=== PATIENT | female | born 1955 | race Caucasian/White ===

== ENCOUNTER 2019-09-09 07:47 | Outpatient (CLI) | payer OTHER, SELFPAY ==
--- NOTE | 2019-09-09 08:32 | ECG_ITS ---
Measurements Intervals [place] Rate: 78 P: 4 [place]: 148 QRS: 20 QRSD: 89 T: 25 QT: 348 QTc: 398 Interpretive Statements SINUS RHYTHM CONSIDER INFERIOR INFARCT, AGE INDETERMINATE BASELINE ARTIFACT- V6 ABNORMAL ECG Electronically Signed On 09-09-2019 9:15:45 CDT by Daniel Sharpe D.O.
[2019-09-09 09:16] LABS: Blood Urea Nitrogen 8 mg/dL (7-17); Calcium 9.4 mg/dL (8.4-10.2); Carbon Dioxide 30 mmol/L (22-30); Chloride 102 mmol/L (98-107); Estimated Glomerular Filt Rate > 60; Glucose 166 mg/dL (65-105); Potassium 4.5 mmol/L (3.4-5.0); Sodium 137 mmol/L (137-145)
== END 2019-09-09 07:48 | disposition home or self-care (01) ==
PROVIDERS: Anesthesiology; Visit Provider Surgery
DX: E11.9 Type 2 diabetes mellitus without complications (principal); R94.31 Abnormal electrocardiogram [ECG] [EKG]
CPT/HCPCS: 36415; 80048; 93005

== ENCOUNTER 2019-09-14 00:04 | Outpatient (CLI) | payer OTHER, SELFPAY ==
[2019-09-14 18:56] LABS: SARS-CoV-2 RNA PCR Negative
== END 2019-09-14 00:05 | disposition home or self-care (01) ==
LOC: ANHCOVIDDT 00:05
PROVIDERS: Visit Provider Surgery
DX: Z01.818 Encounter for other preprocedural examination (principal); Z11.59 Encounter for screening for other viral diseases
CPT/HCPCS: 87635; C9803; U0003

== ENCOUNTER 2019-09-16 15:04 | Observation (INO) | payer OTHER, SELFPAY ==
[2019-09-09 08:17] VITALS: BP 152/80; PULSE 82; RESP 20; TEMP 37; O2SAT 99
[2019-09-09 08:32] VITALS: BMI 25.7
[2019-09-09 08:41] VITALS: BMI 25.7
--- NOTE | 2019-09-13 16:59 | PM.IMHP ---
H&P: HPI History of Present Illness Chief complaint: Excisional Hernia Narrative: Katerina Lee is a 63 year old female Who had a hysterectomy quite a few years ago. For about the last 7 years or more she has noticed a bulge in the lower abdomen. The bulges in the suprapubic area and just left of the suprapubic area. She was evaluated in 2018 and surgery was recommended. The hernia was small and was not giving her very much trouble. She decided to hold off on the surgery. CT scan at that time showed a large infraumbilical ventral incisional hernia. Over the last 2 years the hernia has increased in size. It is more frequently painful. She can still reduce the hernia. She was seen in the office and after discussion, she wishes to proceed with hernia repair. She is diabetic and blood sugars typically run in the upper 100s. Her last A1c was 6.1. Review of Systems Review of Systems: All systems reviewed & are unremarkable except as noted in HPI and below Constitutional: Constitutional: Denies headache(s) ENT: Denies headache(s) Cardiovascular: Cardiovascular: Denies chest pain and Denies dyspnea Respiratory: Respiratory: Denies cough and Denies dyspnea Gastrointestinal: Gastrointestinal: Denies bloating, Denies constipation, Reports heartburn and Denies nausea Musculoskeletal: Musculoskeletal: Reports back pain Neurologic: Denies confusion, Denies headache(s) and Reports numbness ( Extremities) Psychiatric: Psychiatric: Denies confusion PMFSH Past Medical History Medical History Carpal tunnel syndrome Diabetes Hyperlipidemia Neuropathy Surgical History Surgical History History of hysterectomy total History of placement of ear tubes History of tonsillectomy Family History Family History Father Heart disease Mother Heart disease Diabetes mellitus Grandparent Heart disease Cerebrovascular accident Sibling Heart disease Diabetes mellitus Other Hypertension Social History Social History Smoking status: Former smoker Smoking end date: 03/24/75 Alcohol intake: current Additional occupation/education comments: [employer] Home Medications and Allergies Home Medications Medication Instructions Recorded Confirmed Type alendronate 70 mg tablet 70 mg PO WEEKLY 07/06/19 09/09/19 History atorvastatin 20 mg tablet 20 mg PO HS 07/06/19 09/09/19 History cholecalciferol (vitamin D3) 50 50 mcg PO DAILY 07/06/19 09/09/19 History mcg (2,000 unit) capsule biotin 10,000 mcg PO DAILY 09/09/19 09/09/19 History chromium picolinate 1,000 mcg PO DAILY 09/09/19 09/09/19 History cyanocobalamin (vitamin B-12) 1,000 mcg PO DAILY 09/09/19 09/09/19 History liraglutide [Victoza 2-Neymar] 1.8 mg SUBCUT DAILY 09/09/19 09/09/19 History irdcrhgxnvqb-bxfp-mflck acid 1 tablet PO DAILY 09/09/19 09/09/19 History [Complete Women] Allergies Allergy/AdvReac Type Severity Reaction Status Date / Time banana Allergy Mild Itching Verified 09/09/19 08:09 kiwi Allergy Mild Itching Verified 09/09/19 08:09 Exam Const: General: cooperative, comfortable, no acute distress, alert and awake; No confusion Orientation/consciousness: No confusion HENMT: Head: normocephalic, atraumatic, no contusions and no scalp lesions Ears: external ears normal General nose exam: Normal external nose present Face and sinus: face symmetric and dry mucous membranes Mouth: Yes Normal oral and palatal mucosa present and Yes tongue normal Throat: posterior oropharynx normal Eyes: Conjunctivae: conjunctivae normal Sclera: sclerae normal Pupils: Equal, round and reactive pupils present EOM: EOMs intact bilaterally Neck: Neck: normal visual inspection, no lymphadenopathy, trachea midline, supple, nontender and no J
[2019-09-16] VITALS (14 sets, daily range): BP systolic 117–163; BP diastolic 63–90; PULSE 84–98; RESP 10–20; TEMP 36.3–36.7; O2SAT 98–100; BMI 25.9
--- NOTE | 2019-09-16 09:33 | WPDANESEPPF ---
Anes - Initial Pre Proc Eval Procedure: Operation Date: 09/16/19 10:30 Proposed Procedures p Repair Incisional Hernia With Mesh, Possible Bilateral Myofascial Flap Advancement - Jose Rodriguez MD Date/Time: 09/16/19 09:33 Surgeon: Jose Rodriguez MD Pre Op Diagnosis: Excisional Hernia Patient Data Age: 63 Gender: F Height: 1.49 m Weight: 56.4 kg Last Vital Signs Temp 36.3 C L 09/16/19 08:44 Pulse 86 09/16/19 08:44 Resp 20 09/16/19 08:44 BP 133/85 09/16/19 08:44 Pulse Ox 100 09/16/19 08:44 Allergies Allergy/AdvReac Type Severity Reaction Status Date / Time banana Allergy Mild Itching Verified 09/16/19 08:49 kiwi Allergy Mild Itching Verified 09/16/19 08:49 Home Medications Medication Instructions Recorded Confirmed Type alendronate 70 mg tablet 70 mg PO WEEKLY 07/06/19 09/16/19 History atorvastatin 20 mg tablet 20 mg PO HS 07/06/19 09/16/19 History cholecalciferol (vitamin D3) 50 50 mcg PO DAILY 07/06/19 09/16/19 History mcg (2,000 unit) capsule biotin 10,000 mcg PO DAILY 09/09/19 09/16/19 History chromium picolinate 1,000 mcg PO DAILY 09/09/19 09/16/19 History cyanocobalamin (vitamin B-12) 1,000 mcg PO DAILY 09/09/19 09/16/19 History liraglutide [Victoza 2-Neymar] 1.8 mg SUBCUT DAILY 09/09/19 09/16/19 History ivvyiwbfbtqc-pmjs-iyhei acid 1 tablet PO DAILY 09/09/19 09/16/19 History [Complete Women] Patient hx anesthesia problems: none Family hx anesthesia problems: none PMFSH Past Medical History Medical History Carpal tunnel syndrome Diabetes Hyperlipidemia Neuropathy Surgical History Surgical History History of hysterectomy total History of placement of ear tubes History of tonsillectomy Family History Family History Father Heart disease Mother Heart disease Diabetes mellitus Grandparent Heart disease Cerebrovascular accident Sibling Heart disease Diabetes mellitus Other Hypertension Social History Social History Smoking status: Former smoker Smoking end date: 03/24/75 Alcohol intake: current Additional occupation/education comments: [employer] Final PreProcedure Day of Procedure 09/16/19 09:33 Patient weight: overweight Heart: regular rate and rhythm Lungs: clear to auscultation and normal air movement Airway: Mallampati scale class II Neurological: alert and oriented Last oral intake: >/= 8 hours ASA classification: III Emergent: no Anesthetic plan: proceed Anesthesia type and monitoring: general ETT and standard monitoring Informed Consent: The patient's anesthetic plan and its attendant risks and benefits were discussed with the patient/family/POA. Questions were solicited and answers provided to the satisfaction of the patient/family/POA.
[2019-09-16] MEDS: LACTATED RINGERS 1,000 ML 30 ML IV CONT ×2 (09:40→13:24)
[2019-09-16 09:42] LABS: Glucose Point of Care 146 (65-105)
--- NOTE | 2019-09-16 09:58 | WPDHPUPDATE1 ---
History and Physical Update Update Date/Time: 09/16/19 09:58 History and Physical has been reviewed, including an updated exam of the patient. There are NO changes in the patient's condition. Risks, benefits, and alternatives have been discussed and questions answered. Patient agrees to proceed with procedure.
[2019-09-16] MEDS: ceFAZolin 2 GM/D5W 50 ML 2 GM/50 ML BAG IVPB (10:34)
[2019-09-16 12:45] LABS: Glucose Point of Care 135 (65-105)
[2019-09-16] MEDS: KETOROLAC 30 MG/ML VIAL (*BKC) 15 MG IV PUSH (13:04)
[2019-09-16 13:30] LABS: Glucose Point of Care 161 (65-105)
[2019-09-16] MEDS: ONDANSETRON INJ 4 MG/2 ML VIAL IV PUSH (13:49)
--- NOTE | 2019-09-16 13:49 | PM.PROC ---
Procedure Note - Detailed Date of procedure: 09/16/19 Pre-op diagnosis: Incisional Hernia Incisional hernia Post-op diagnosis: same Procedure performed: Repair incisional hernia with mesh, bilateral transversus abdominis myofascial flap advancement, 5 cm on the left, 2 cm on the right. Description of procedure: Patient was checked in the preoperative holding area. She was then taken to surgery and induced into general anesthesia. The abdomen was prepped and draped. The hernia was easily palpable in the left lower quadrant. A midline lower abdominal incision was made. This started below the umbilicus but extended to the pubis. Dissection was carried through the subcutaneous and down to the hernia sac. The hernia sac was dissected free from the surrounding subcutaneous. It was dissected on both the left and right sides down to the fascial edge. Then the neck of the hernia was incised and eventually the hernia sac was completely removed. The hernia sac was sent to pathology as a specimen. Omentum had been chronically incarcerated in the hernia sac. This was reduced into the abdomen. Initially, I thought that this was a fairly small defect that could possibly just be repaired with underlay mesh. Unfortunately the sigmoid colon was plastered to the peritoneum on the left side. This had to be taken down for repair. I tried to do this through the existing hernia but there was not enough space to proceed safely. I went ahead and opened the midline fascia the length of the wound. From there I was able to dissect the sigmoid colon off of the peritoneum leaving what ever peritoneum there that had not been removed with the hernia. With the sigmoid safely in the abdomen in its normal position, I then took down lateral adhesions on the patient's left side all the way to the axillary line. The bulk of the defect was on the patient's left side. I then exposed the peritoneal edge and began dissecting the peritoneum from the rectus muscle in the lower abdomen. I dissected on laterally doing a transversus abdominis release so that the dissection went all the way to the axillary line. In the upper part of the incision, I had to divide some of the posterior rectus fascia. I then dissected to the lateral aspect of the posterior rectus fascia. I scored this just medial to the lateral edge. I avoided the neurovascular bundle to the rectus muscles. I then began the transversus abdominis release in this area. This had to be done carefully as the transversus was very thin. Once I gained access to the appropriate plane deep to the transversus muscle, I was able to continue this dissection was far laterally as I had done in the lower part of the dissection. There were a couple of holes in the peritoneum which I closed with 3 0 Vicryl suture. I then changed sides and started work on the patient's right side. The peritoneum was dissected off the posterior aspect of the rectus abdominis muscle. I dissected this down to the suprapubic area and then connected the dissection from the patient's right side to the previous dissection done on the left side so that there was a retropubic plane. I then continued this dissection cephalad and gained access to the space deep to the transversus abdominis. I carefully dissected this as it was quite thin. As I a went more cephalad I did have to divide the posterior rectus fascia for a few inches as I had on the patient's left side. I developed a plane across the midline above the level of the umbilicus that would connect the retro rectus dissections from the right and the left side across the midline. The transversus abdominis release in this lower part of the abdomen was completed on the patient's right side extending the dissection far laterally. On the right side there were also a couple of holes in the peritoneum that I repaired with 3 0 Vicryl suture. I inspected both sides of the dissection. We had a substantial transversus abdominis release
--- NOTE | 2019-09-16 15:44 | ADMGEN ---
This patient, Katerina Lee, was admitted to [facility] Surg Room 313-01. Patient/family oriented to hospital policies and general routines including ID bracelet, bed and alarms, visiting hours, pain management, procedures, bathroom and other care routines, personal items, smoking policy, room service/diet, and visiting hours. Valuables list has been completed. Information on how to activate the Rapid Response Team has been discussed. Patient/Family are encouraged to report perceived risks to care and to ask questions if they do not understand what they are told or what they should do.
[2019-09-16] MEDS: LACTATED RINGERS 1,000 ML 100 ML IV CONT (16:37)
[2019-09-16] MEDS: IBUPROFEN IV 800 MG/200 ML 800 MG/200 ML BAG 400 MG IVPB (18:06)
[2019-09-16 18:12] LABS: Glucose Point of Care 188 (65-105)
[2019-09-16] MEDS: ATORVASTATIN 20 MG TABLET PO (21:09)
[2019-09-16] MEDS: SENNA/DOCUSATE SODIUM TABLET 2 TAB PO (21:09)
[2019-09-16] MEDS: ENOXAPARIN 30 MG/0.3 ML SYRINGE SUB-Q (21:09)
[2019-09-16 21:55] LABS: Glucose Point of Care 288 (65-105)
[2019-09-17] MEDS: IBUPROFEN IV 800 MG/200 ML 800 MG/200 ML BAG 400 MG IVPB ×5 (00:35→23:49)
[2019-09-17 01:58] VITALS: BP 103/60; PULSE 91; RESP 18; TEMP 36.4; O2SAT 99
[2019-09-17] MEDS: LACTATED RINGERS 1,000 ML 100 ML IV CONT ×2 (04:17→15:49)
[2019-09-17 06:00] VITALS: BP 120/68; PULSE 78; RESP 18; TEMP 36.7; O2SAT 100
[2019-09-17 06:32] LABS: Hematocrit 31.8 % (37.0-47.0); Hemoglobin 10.8 g/dL (12.0-15.0); Mean Corpuscular Hemoglobin 32.3 pg (26-34); Mean Corpuscular Volume 95.2 fl (80-100); Mean Platelet Volume 10.9 fl (7.4-10.4); Platelet Count Result 129 k/mm3 (150-375); Red Blood Count 3.34 M/mm3 (4.2-5.4); Red Cell Distribution Width 12.7 % (11.5-14.5); White Blood Count 9.2 K/mm3 (4.5-10.0)
[2019-09-17 06:46] LABS: Blood Urea Nitrogen 11 mg/dL (7-17); Calcium 8.1 mg/dL (8.4-10.2); Carbon Dioxide 25 mmol/L (22-30); Chloride 105 mmol/L (98-107); Estimated Glomerular Filt Rate > 60; Glucose 184 mg/dL (65-105); Potassium 4.3 mmol/L (3.4-5.0); Sodium 137 mmol/L (137-145)
--- NOTE | 2019-09-17 07:10 | PM.PNGS ---
Progress Note: A&P Assessment and Plan (1) Ventral incisional hernia without obstruction or gangrene: Code(s): K43.2 - Incisional hernia without obstruction or gangrene Status: Chronic Assessment and Plan: Doing well postop day 1. Will DC Jim today and start getting patient up. Start dressing changes tomorrow. Advance to soft diet. Continue to check labs daily. Looks good. (2) Diabetes: Qualifiers: Diabetes mellitus type: type 2 Diabetes mellitus continuous churn buttermaker insulin use: without fci use Diabetes mellitus complication status: without complication Qualified Code(s): E11.9 - Type 2 diabetes mellitus without complications Code(s): E11.9 - Type 2 diabetes mellitus without complications Status: Chronic Assessment and Plan: Blood sugars mostly in the 100s. Continue to monitor with sliding scale insulin. Hospitalist seeing patient 2. Subjective Subjective Date/Time Seen: 09/17/19 07:10 Post Op day: 1 Patient reports: no new complaints, pain is less (Not having much pain.), tolerating liquids well, no flatus and no bowel movement Review of Systems Review of Systems: All systems reviewed & are unremarkable except as noted in HPI and below Constitutional: Constitutional: Denies headache(s) Cardiovascular: Cardiovascular: Denies chest pain and Denies dyspnea Respiratory: Respiratory: Denies cough and Denies dyspnea Gastrointestinal: Gastrointestinal: Reports as per HPI Neurologic: Denies confusion and Denies headache(s) Exam Const: General: comfortable and no acute distress; No confusion Orientation/consciousness: patient oriented x3 and No confusion GI: Inspection: incision (Dressing dry and intact. Subcu drain on left is bloody) GI Palp: Yes Soft to palpation, Yes Tenderness to palpation present (GI), No Guarding due to palpation present (GI) and No Rebound tenderness present Auscultation: Hypoactive bowel sounds present Neuro: General: patient oriented x3, no focal motor deficits and No confusion Extrem: General: no calf tenderness and no edema Psych: Affect: normal affect Insight: Good insight present (Psych) Judgement: Good judgement present (Psych) Objective Data Vital Signs Vital Signs: Vital Signs - 24 hr 09/16/19 08:44 09/16/19 13:24 09/16/19 13:40 Temperature 36.3 C L 36.7 C Pulse Rate 86 91 89 Respiratory Rate 20 10 L 10 L Blood Pressure 133/85 161/74 H 156/73 H Pulse Oximetry 100 100 98 09/16/19 13:55 09/16/19 14:10 09/16/19 14:25 Temperature Pulse Rate 88 86 84 Respiratory Rate 12 12 12 Blood Pressure 137/67 117/63 117/63 Pulse Oximetry 98 98 98 09/16/19 14:40 09/16/19 14:55 09/16/19 15:00 Temperature Pulse Rate 87 90 89 Respiratory Rate 12 10 L 12 Blood Pressure 117/66 121/66 122/69 Pulse Oximetry 98 99 99 09/16/19 15:15 09/16/19 15:30 09/16/19 16:00 Temperature 36.4 C L 36.4 C 36.3 C L Pulse Rate 92 92 91 Respiratory Rate 18 16 16 Blood Pressure 146/75 H 147/81 H 163/87 H Pulse Oximetry 100 100 100 09/16/19 17:00 09/16/19 22:00 09/17/19 01:58 Temperature 36.3 C L 36.7 C 36.4 C Pulse Rate 96 98 91 Respiratory Rate 18 18 18 Blood Pressure 159/90 H 139/79 103/60 Pulse Oximetry 100 100 99 09/17/19 06:00 Temperature 36.7 C Pulse Rate 78 Respiratory Rate 18 Blood Pressure 120/68 Pulse Oximetry 100 Intake/Output Intake/Output: Intake & Output 09/14/19 09/15/19 09/16/19 09/17/19 23:59 23:59 23:59 23:59 Intake Total 1410 1450 Output Total 510 1775 Balance 900 -325 Meds/Results Medications: Active Medications Generic Name Dose Route Start Last Admin Trade Name Joseq PRN Reason Stop Dose Admin Acetaminophen 500 mg 09/16/19 15:04 Tylenol Tablet PO Q6H PRN Mild Pain (1-3) or Fever Hydrocodone Bitart/Acetaminophen 1 tab 09/16/19 15:04 09/16/19 16:37 [place] 5-325 Mg PO 1 tab Q4H PRN Administration Pain Rated 4-6 Hydrocodone Bitart/Acetamin
--- NOTE | 2019-09-17 08:29 | WPDANESPN ---
Anes - Prog Note Post-Op Date/Time: 09/17/19 08:29 Cardiovascular status: normal Respiratory status: normal Airway patency: baseline Mental status: baseline Post-Op hydration status: normal Vital Signs: Last Vital Signs Temp 98.1 F 09/17/19 06:00 Pulse 78 09/17/19 06:00 Resp 18 09/17/19 06:00 BP 120/68 09/17/19 06:00 Pulse Ox 100 09/17/19 06:00 I/O: Intake & Output 09/16/19 09/17/19 09/17/19 23:59 07:59 15:59 Intake Total 760 1450 Output Total 350 1775 Balance 410 -325 Laboratory Tests 09/17/19 06:06 09/17/19 06:06 09/16/19 09/16/19 09/16/19 09:36 12:39 13:28 WBC RBC Hgb Hct MCV MCH MCHC RDW Plt Count MPV Sodium Potassium Chloride Carbon Dioxide BUN Creatinine Estim Creat Clear Calc Estimated GFR Glucose POC Capillary Glucose 146 H 135 H 161 H Calcium 09/16/19 09/16/19 09/17/19 17:35 21:17 06:06 WBC 9.2 RBC 3.34 L Hgb 10.8 L Hct 31.8 L MCV 95.2 MCH 32.3 MCHC 34.0 RDW 12.7 Plt Count 129 L MPV 10.9 H Sodium Potassium Chloride Carbon Dioxide BUN Creatinine Estim Creat Clear Calc Estimated GFR Glucose POC Capillary Glucose 188 H 288 H Calcium 09/17/19 06:06 WBC RBC Hgb Hct MCV MCH MCHC RDW Plt Count MPV Sodium 137 Potassium 4.3 Chloride 105 Carbon Dioxide 25 BUN 11 Creatinine 0.70 Estim Creat Clear Calc Not Reportable Estimated GFR > 60 Glucose 184 H POC Capillary Glucose Calcium 8.1 L Post-procedural complaints: other (pt complains of bilateral eye burning with right eye stabbing pain . eye gtts ordered. ) Patient Feedback: Patient satisfied with anesthetic care.
[2019-09-17 09:09] VITALS: PULSE 82; O2SAT 98
[2019-09-17] MEDS: polyethylene glycoL 3350 17 GM POWD.PACK PO (11:13)
[2019-09-17] MEDS: ENOXAPARIN 40 MG/0.4 ML SYRINGE SUB-Q (11:13)
[2019-09-17] MEDS: DICLOFENAC SODIUM 0.1% OPHTH SOLN 2.5 ML BOTTLE 1 DROP EACH EYE ×2 (13:50→21:43)
[2019-09-17 14:00] VITALS: BP 150/74; PULSE 93; RESP 18; TEMP 36.3; O2SAT 98
[2019-09-17 17:46] LABS: Glucose Point of Care 172 (65-105)
[2019-09-17] MEDS: ATORVASTATIN 20 MG TABLET PO (20:09)
[2019-09-17 20:44] LABS: Glucose Point of Care 275 (65-105)
[2019-09-17 22:00] VITALS: BP 117/62; PULSE 91; RESP 18; TEMP 36.6; O2SAT 97
[2019-09-18] MEDS: LACTATED RINGERS 1,000 ML 100 ML IV CONT ×2 (00:52→10:32)
[2019-09-18 06:00] VITALS: BP 120/71; PULSE 74; RESP 18; TEMP 36.5; O2SAT 95
[2019-09-18 06:40] LABS: Hematocrit 27.8 % (37.0-47.0); Hemoglobin 9.2 g/dL (12.0-15.0); Mean Corpuscular HGB Conc 33.1 g/dl (32-36); Mean Corpuscular Hemoglobin 31.3 pg (26-34); Mean Corpuscular Volume 94.6 fl (80-100); Mean Platelet Volume 11.1 fl (7.4-10.4); Platelet Count Result 108 k/mm3 (150-375); Red Blood Count 2.94 M/mm3 (4.2-5.4); Red Cell Distribution Width 12.9 % (11.5-14.5); White Blood Count 6.8 K/mm3 (4.5-10.0)
[2019-09-18 06:54] LABS: Blood Urea Nitrogen 12 mg/dL (7-17); Carbon Dioxide 27 mmol/L (22-30); Chloride 107 mmol/L (98-107); Estimated Glomerular Filt Rate > 60; Glucose 179 mg/dL (65-105); Potassium 3.8 mmol/L (3.4-5.0); Sodium 134 mmol/L (137-145)
[2019-09-18] MEDS: IBUPROFEN IV 800 MG/200 ML 800 MG/200 ML BAG 400 MG IVPB ×4 (06:58→23:36)
[2019-09-18] MEDS: DICLOFENAC SODIUM 0.1% OPHTH SOLN 2.5 ML BOTTLE 1 DROP EACH EYE ×3 (06:59→20:29)
[2019-09-18 07:48] VITALS: O2SAT 90
[2019-09-18] MEDS: ENOXAPARIN 40 MG/0.4 ML SYRINGE SUB-Q (08:54)
[2019-09-18 08:57] LABS: Glucose Point of Care 175 (65-105)
--- NOTE | 2019-09-18 10:15 | PM.PNGS ---
Progress Note: A&P Assessment and Plan (1) Ventral incisional hernia without obstruction or gangrene: Code(s): K43.2 - Incisional hernia without obstruction or gangrene Status: Chronic Assessment and Plan: doing well, cont routine postop care, will advance diet, cont OOB/IS, poss home tomorrow (2) Diabetes: Qualifiers: Diabetes mellitus type: type 2 Diabetes mellitus long term care phlebotomist insulin use: without long term care phlebotomist use Diabetes mellitus complication status: without complication Qualified Code(s): E11.9 - Type 2 diabetes mellitus without complications Code(s): E11.9 - Type 2 diabetes mellitus without complications Status: Chronic Assessment and Plan: diabetic diet Subjective Subjective Date/Time Seen: 09/18/19 10:15 Pt feels good, reports no issues Review of Systems Constitutional: Constitutional: Reports weakness Cardiovascular: Cardiovascular: Denies chest pain Respiratory: Respiratory: Denies dyspnea Gastrointestinal: Gastrointestinal: Reports abdominal pain, Denies bloating, Denies constipation, Denies diarrhea, Denies nausea and Denies vomiting Exam Const: General: no acute distress Resp: Auscultation: clear to auscultation bilaterally Cardio: Rate: regular rate Rhythm: regular rhythm GI: Other: soft, sl dist, junie TTP, incision C/D/I, LESLEE LLQ sanganeous but not large amount, RLQ s/s mod Objective Data Vital Signs Vital Signs: Vital Signs - 24 hr 09/17/19 14:00 09/17/19 22:00 09/18/19 06:00 Temperature 36.3 C L 36.6 C 36.5 C Pulse Rate 93 91 74 Respiratory Rate 18 18 18 Blood Pressure 150/74 H 117/62 120/71 Pulse Oximetry 98 97 95 09/18/19 07:48 Temperature Pulse Rate Respiratory Rate Blood Pressure Pulse Oximetry 90 Intake/Output Intake/Output: Intake & Output 09/15/19 09/16/19 09/17/19 09/18/19 23:59 23:59 23:59 23:59 Intake Total 1410 4010 1910 Output Total 510 2925 1750 Balance 900 1085 160 Meds/Results Medications: Active Medications Generic Name Dose Route Start Last Admin Trade Name Freq PRN Reason Stop Dose Admin Acetaminophen 500 mg 09/16/19 15:04 Tylenol Tablet PO Q6H PRN Mild Pain (1-3) or Fever Hydrocodone Bitart/Acetaminophen 1 tab 09/16/19 15:04 09/18/19 08:52 [place] 5-325 Mg PO 1 tab Q4H PRN Administration Pain Rated 4-6 Hydrocodone Bitart/Acetaminophen 1 tab 09/16/19 15:04 [place] 10-325 Mg PO Q6H PRN Pain Rated 7-10 Artificial Tears 1 drop 09/17/19 08:26 09/17/19 11:12 Artificial Tears EACH EYE 1 drop Q2H PRN Administration Dry Eye(s) Atorvastatin Calcium 20 mg 09/16/19 21:00 09/17/19 20:09 Lipitor PO 20 mg HS MIREYA Administration Dextrose 12.5 gm 09/16/19 15:04 Dextrose 50% Syringe IV PUSH PRN PRN Hypoglycemia Protocol Diclofenac Sodium 1 drop 09/17/19 14:00 09/18/19 06:59 Voltaren 0.1% Ophth Soln EACH EYE 09/21/19 14:01 1 drop Q8HR MIREYA Administration Diphenhydramine HCl 25 mg 09/16/19 15:04 Benadryl Inj IV PUSH Q6H PRN Itching Enoxaparin Sodium 40 mg 09/17/19 09:00 09/18/19 08:54 Lovenox SUB-Q 40 mg DAILY MIREYA Administration Glucagon 1 mg 09/16/19 15:04 Glucagon For Inj IM PRN PRN Hypoglycemia Protocol Glucose 15 gm 09/16/19 15:04 Glutose 15 PO PRN PRN Hypoglycemia Protocol Lactated Ringer's 1,000 mls @ 100 mls/hr 09/16/19 15:04 09/18/19 00:52 Lr - Lactated Ringers Iv IV CONT 100 mls/hr .Q10H MIREYA Administration Ibuprofen 800 mg in 200 mls @ 400 mls/hr 09/16/19 19:00 09/18/19 06:58 Caldolor 800 Mg/200 Ml IVPB 400 mls/hr Q6HR MIREYA Administration Dextrose 1,000 mls @ 100 mls/hr 09/16/19 15:04 Dextrose 5% 1,000 Ml IVPB PRN PRN Hypoglycemia Protocol Insulin Aspart 3 - 6 units 09/16/19 17:00 09/18/19 08:52 Novolog SUB-Q Not Given TIDWM MIREYA Protocol Morphine Sulfat
[2019-09-18 12:19] LABS: Glucose Point of Care 204 (65-105)
[2019-09-18] MEDS: INSULIN ASPART (*BKC) 100 UNITS/ML SUB-Q (12:19)
[2019-09-18 14:00] VITALS: BP 137/78; PULSE 84; RESP 18; TEMP 36.7; O2SAT 98
[2019-09-18 17:53] LABS: Glucose Point of Care 178 (65-105)
[2019-09-18] MEDS: ATORVASTATIN 20 MG TABLET PO (20:29)
[2019-09-18 21:15] LABS: Glucose Point of Care 247 (65-105)
[2019-09-18 22:00] VITALS: BP 112/65; PULSE 82; RESP 20; TEMP 36.5; O2SAT 96
[2019-09-19] MEDS: LACTATED RINGERS 1,000 ML 100 ML IV CONT (03:40)
[2019-09-19 06:00] VITALS: BP 153/73; PULSE 93; RESP 20; TEMP 36.2; O2SAT 100
[2019-09-19] MEDS: IBUPROFEN IV 800 MG/200 ML 800 MG/200 ML BAG 400 MG IVPB ×2 (06:19→12:37)
[2019-09-19] MEDS: DICLOFENAC SODIUM 0.1% OPHTH SOLN 2.5 ML BOTTLE 1 DROP EACH EYE (06:20)
[2019-09-19 06:28] LABS: Hematocrit 27.6 % (37.0-47.0); Hemoglobin 9.2 g/dL (12.0-15.0); Immature Platelet Fraction Pct 5.5 % (0.9-11.2); Mean Corpuscular HGB Conc 33.3 g/dl (32-36); Mean Corpuscular Hemoglobin 32.1 pg (26-34); Mean Corpuscular Volume 96.2 fl (80-100); Mean Platelet Volume 11.2 fl (7.4-10.4); Platelet Count Result 113 k/mm3 (150-375); Red Blood Count 2.87 M/mm3 (4.2-5.4); Red Cell Distribution Width 12.7 % (11.5-14.5); White Blood Count 5.4 K/mm3 (4.5-10.0)
[2019-09-19 06:46] LABS: Blood Urea Nitrogen 11 mg/dL (7-17); Calcium 8.2 mg/dL (8.4-10.2); Carbon Dioxide 28 mmol/L (22-30); Chloride 104 mmol/L (98-107); Estimated Glomerular Filt Rate > 60; Glucose 174 mg/dL (65-105); Potassium 4.1 mmol/L (3.4-5.0); Sodium 135 mmol/L (137-145)
[2019-09-19] MEDS: ENOXAPARIN 40 MG/0.4 ML SYRINGE SUB-Q (09:31)
[2019-09-19 12:30] LABS: Glucose Point of Care 164 (65-105)
[2019-09-19] MEDS: INSULIN ASPART (*BKC) 100 UNITS/ML SUB-Q (12:33)
[2019-09-19 12:52] LABS: Glucose Point of Care 243 (65-105)
--- NOTE | 2019-09-19 13:19 | PM.DS ---
DS: Admitting Diagnosis Admitting Diagnosis Admitting Diagnosis: ventral incisional hernia DS: Discharge Diagnosis Discharge Diagnosis (1) Ventral incisional hernia without obstruction or gangrene: Code(s): K43.2 - Incisional hernia without obstruction or gangrene Status: Chronic Assessment and Plan: s/p repair, RLQ drain removed, will leave LLQ drain, instructions for wound care and activity restrictions given, f/u Dr. Rodriguez 1 wk (2) Diabetes: Qualifiers: Diabetes mellitus type: type 2 Diabetes mellitus custodial insulin use: without custodial use Diabetes mellitus complication status: without complication Qualified Code(s): E11.9 - Type 2 diabetes mellitus without complications Code(s): E11.9 - Type 2 diabetes mellitus without complications Status: Chronic Assessment and Plan: stable, resume home meds DS: Summary Hospital Course Reason for hospitalization: Ventral incisional hernia Hospital Course: Patient presented on 09/15 for repair of large lower abdominal incisional hernia. Patient underwent repair with mesh and bilateral transversus abdominal compartment release by Dr. Rodriguez, please see full operative report for details of the procedure. Patient did very well postoperatively, and pain was well controlled with p.o. analgesia. Patient did have 2 drains left, and right lower quadrant drain was removed prior to discharge. Left lower quadrant drain will stay in place, drain care instructions given. Wound was examined and looks to be healing well, wound care instructions given. Patient tolerating a diet and having bowel function at discharge. Patient will follow-up with Dr. Rodriguez in 1 week for drain removal. Status at Discharge Functional status at discharge: independent ambulation Overall status at discharge: patient is progressing back to baseline Time Spent with Patient Time attestation: Total time spent providing and/or coordinating discharge services: Time spent: Less than 30 minutes DS: Data Data Completed and Pending Completed studies during hospitalization: Pending at discharge 09/16/19 11:17 Surgical [PTH] Routine Labs on day of discharge: Labs from last 24 hours 09/19/19 09/19/19 09/19/19 12:32 08:12 05:47 WBC RBC Hgb Hct MCV MCH MCHC RDW Plt Count MPV % Immature Plt Fraction Sodium 135 L Potassium 4.1 Chloride 104 Carbon Dioxide 28 BUN 11 Creatinine 0.60 L Estim Creat Clear Calc Not Reportable Estimated GFR > 60 Glucose 174 H POC Capillary Glucose 243 H 164 H Calcium 8.2 L 09/19/19 09/18/19 09/18/19 05:47 20:38 17:43 WBC 5.4 RBC 2.87 L Hgb 9.2 L Hct 27.6 L MCV 96.2 MCH 32.1 MCHC 33.3 RDW 12.7 Plt Count 113 L MPV 11.2 H % Immature Plt Fraction 5.5 Sodium Potassium Chloride Carbon Dioxide BUN Creatinine Estim Creat Clear Calc Estimated GFR Glucose POC Capillary Glucose 247 H 178 H Calcium Discharge Plan Discharge Attending physician on discharge: Jose Rodriguez Discharging Clinician: Clarisse Goldstein Anticipated Discharge Date/Time: 09/19/19 13:16 Patient Disposition: Home, Self-Care Activity: no shower, no straining and other - see discharge instructions Diet: as tolerated Wound Care Instructions: remove dressing to shower and change dressing daily Discharge Instructions: DISCHARGE INSTRUCTION SHEET FOR HERNIA, GALLBLADDER AND APPENDIX SURGERIES DR. GOLDSTEIN PATIENT TO TAKE HOME 1. May shower in 24 hours, no soaking in bath x 2weeks. 2. Call office for: Wound increasingly painful or bleeding Vomiting Fever of greater than 101 degrees 3. If no bowel movement for three days, take 1 oz. (30 ml) Milk of Magnesia or MiraLax 17g 1 to 2 times daily. 4. No heavy lifting > 10-15 pounds x weeks for hernia repairs and 2 weeks for laparosco
[2019-09-19 14:00] VITALS: BP 141/66; PULSE 76; RESP 18; TEMP 36.8; O2SAT 97
== END 2019-09-19 15:11 | disposition home or self-care (01) ==
LOC: ANH3MEDSUR 09-19 13:19
PROVIDERS: Admitting Provider Surgery; Visit Provider Surgery
PROC: 0WQF0ZZ Repair Abdominal Wall, Open Approach (ICD-10-PCS; CPT 49560; principal; 2019-09-16 10:30)
DX: K43.2 Incisional hernia without obstruction or gangrene (principal); E11.40 Type 2 diabetes mellitus with diabetic neuropathy, unspecified; E78.5 Hyperlipidemia, unspecified; Z79.899 Other long term (current) drug therapy; Z87.891 Personal history of nicotine dependence
CPT/HCPCS: 49560; 49568; 15734; 36415; 80048; 85027; 85055; 88302; 96361; 96365; 96366; 96367; 96372; A9270; C1781; C9290; G0378; G0379; J0131; J0330; J0690; J1100; J1170; J1200; J1650; J1741; J1815; J1885; J2250; J2370; J2405; J2704; J2710; J3010; J7120

== ENCOUNTER 2019-09-21 20:15 | Emergency (ER) | payer OTHER, SELFPAY ==
--- NOTE | ~2019-09-21 | XR_ITS ---
EXAMINATION: XR chest 1V portable INDICATION: Chills and vomiting TECHNIQUE: Portable AP chest at 2118 hours COMPARISON: 06/20/2016 FINDINGS: The lungs are free of acute opacities. There is no pleural effusion or pneumothorax. The ca rdiomediastinal silhouette is normal. IMPRESSION: 1. No acute cardiopulmonary abnormality. Reviewed, dictated and finalized at location A.
--- NOTE | ~2019-09-21 | CT_ITS ---
EXAMINATION: CT abdomen pelvis w con INDICATION: Postoperative vomiting, recent hernia repair TECHNIQUE: Computed tomographic images of the abdomen and pelvis were obtained after the administrati on of 100 cc of Omnipaque 350 intravenous contrast. The dose-length product (DLP) was 273.66 mGy-cm. Automated exposure control and iterative reconstruction technique were employed. COMPARISON: None available FINDINGS: Minimal dependent atelectasis is present in the lung bases. The heart size is normal. The l iver, spleen, pancreas, gallbladder, and adrenal glands are normal. The kidneys are unremarkable. The re is calcified atherosclerosis of the aorta and many of the other arteries. The appendix is normal. No pathologically enlarged abdominal or pelvic lymph nodes are identified. There are trace foci of fr ee intraperitoneal gas seen in the anterior abdomen and right upper quadrant. Gas and fluid are prese nt in the subcutaneous fat of the low anterior abdominal wall. The largest pocket measures 6.3 x 1.3 cm. There is a small amount of gas in the right lower quadrant along a port tract. Subtle inflammator y change near the umbilicus is also likely related to poor tract. There is a drain in the subcutaneou s tissues of the left lower quadrant which is not contiguous with the fluid and gas in the anterior a bdominal wall. A large volume of colonic stool is present. There are no dilated loops of bowel. There is a large diverticulum near the junction of the second and third portions of the duodenum. Tiny foc us of gas in the urinary bladder could reflect recent catheterization. There is mild lumbar spondylos is. IMPRESSION: 1. Expected postsurgical findings from recent hernia repair as detailed above including a small amoun t of fluid and gas in the subcutaneous tissues of the anterior abdominal wall, not contiguous with an indwelling left lower quadrant drain. 2. Constipation. Reviewed, dictated and finalized at location A. IMPRESSION: 1. Expected postsurgical findings from recent hernia repair as detailed above i ncluding a small amount of fluid and gas in the subcutaneous tissues of the ant erior abdominal wall, not contiguous with an indwelling left lower quadrant shanell in. 2. Constipation.
[2019-09-21 20:18] VITALS: BP 169/87; PULSE 90; RESP 17; TEMP 36.7; O2SAT 98
--- NOTE | 2019-09-21 20:39 | PC.NURSE ---
pt states she is unable to give a urine sample at this time.
[2019-09-21 20:49] LABS: Basophils Percent Auto 0.3 % (0.2-1.2); Eosinophils Absolute Auto 0.2 K/mm3 (0-0.3); Eosinophils Percent Auto 2.2 % (0-4.4); Hematocrit 35.4 % (37.0-47.0); Immature Granulocyte Absolute 0.02 K/mm3 (0.00-0.031); Immature Granulocyte Percent A 0.3 % (0-0.5); Lymphocytes Absolute Auto 1.44 K/mm3 (0.9-3.2); Lymphocytes Percent Auto 18.3 % (18.3-44.2); Mean Corpuscular HGB Conc 33.9 g/dl (32-36); Mean Corpuscular Hemoglobin 32.1 pg (26-34); Mean Corpuscular Volume 94.7 fl (80-100); Mean Platelet Volume 9.8 fl (7.4-10.4); Monocytes Absolute Auto 0.6 K/mm3 (0.1-0.6); Monocytes Percent Auto 7.8 % (2.6-8.5); Neutrophils Absolute Auto 5.6 K/mm3 (1.3-6.7); Neutrophils Percent Auto 71.1 % (45.5-73.1); Platelet Count Result 209 k/mm3 (150-375); Red Blood Count 3.74 M/mm3 (4.2-5.4); Red Cell Distribution Width 12.9 % (11.5-14.5); White Blood Count 7.9 K/mm3 (4.5-10.0)
[2019-09-21 21:02] LABS: Alanine Aminotransferase 15 U/L (4-35); Albumin Level 4.1 g/dL (3.5-5.1); Alkaline Phosphatase 67 U/L (38-126); Aspartate Amino Transferase 29 U/L (14-36); Bilirubin,Total 1.3 mg/dL (0.2-1.3); Blood Urea Nitrogen 8 mg/dL (7-17); Calcium 9.3 mg/dL (8.4-10.2); Carbon Dioxide 32 mmol/L (22-30); Chloride 97 mmol/L (98-107); Estimated Glomerular Filt Rate > 60; Glucose 178 mg/dL (65-105); Lipase 21 U/L (23-300); Potassium 4.1 mmol/L (3.4-5.0); Sodium 137 mmol/L (137-145)
--- NOTE | 2019-09-21 21:36 | ED.NAVMDI ---
HPI - Nausea/Vomiting/Diarrhea General Chief complaint: Nausea/Vomiting/Diarrhea Stated complaint: post op n/v Time Seen by Provider: 09/21/19 21:24 History of Present Illness HPI Narrative: Patient presents 1 week after surgery, for hernia repair. She started vomiting this afternoon has vomited several times. About 11 AM she felt like her left abdominal drain had less liquid in it. She is worried it may have slipped out. Then she started vomiting. Dr. Rodriguez did her hernia repair last week here at [facility]. They removed her first drain 3 days ago, before she left the hospital. She has not had any fever or sweats. She always has chills and they are not worse. MD elicited complaint: nausea and vomiting Related Data Home Medications Medication Instructions Recorded Confirmed alendronate 70 mg tablet 70 mg PO WEEKLY 07/06/19 09/16/19 atorvastatin 20 mg tablet 20 mg PO HS 07/06/19 09/16/19 cholecalciferol (vitamin D3) 50 50 mcg PO DAILY 07/06/19 09/16/19 mcg (2,000 unit) capsule Complete Women 1 tablet PO DAILY 09/09/19 09/16/19 Victoza 2-Neymar 1.8 mg SUBCUT DAILY 09/09/19 09/16/19 biotin 10,000 mcg PO DAILY 09/09/19 09/16/19 chromium picolinate 1,000 mcg PO DAILY 09/09/19 09/16/19 cyanocobalamin (vitamin B-12) 1,000 mcg PO DAILY 09/09/19 09/16/19 Allergies Allergy/AdvReac Type Severity Reaction Status Date / Time banana Allergy Mild Itching Verified 09/21/19 20:35 kiwi Allergy Mild Itching Verified 09/21/19 20:35 Review of Systems Review of Systems: Narrative: CONSTITUTIONAL: Denies fever, chills, or sweats. EYES: Denies visual changes, redness, or discharge. ENT: Denies rhinorrhea, congestion, sore throat, or otalgia. CARDIOVASCULAR: Denies chest pain, palpitations, or edema. RESPIRATORY: Denies cough or dyspnea. GASTROINTESTINAL: She has some abdominal pain, and nausea, vomiting, but not diarrhea. GENITOURINARY: Denies dysuria or hematuria. SKIN: Denies rash or itching. MUSCULOSKELETAL: Denies back pain, joint pain, or myalgia. NEUROLOGIC: Denies headache, numbness, or weakness. PSYCHIATRIC: Denies anxiety or depression. [facility] Past Medical History Medical History Carpal tunnel syndrome Diabetes Hyperlipidemia Neuropathy Surgical History Surgical History History of hysterectomy total History of placement of ear tubes History of tonsillectomy Family History Family History (Updated 09/16/19 @ 15:47 by Taqueria Gonsalez RN) Father Heart disease Mother Diabetes mellitus Heart disease Grandparent Heart disease Cerebrovascular accident Sibling Diabetes mellitus Heart disease Sibling Diabetes mellitus Heart disease Sibling Diabetes mellitus Heart disease Other Hypertension Social History Social History Years smoked: 6 Smoking status: Former smoker Smoking end date: 03/24/75 Alcohol intake: current Drinks per week: 2 Substance use: current Substance use type: marijuana Other substance usage details: once daily Last use: 09/15/2019 Additional occupation/education comments: Cook Gender identity (if verbalized by the patient): Female Spiritual care concerns: No Exam Narrative: Exam Narrative: GENERAL: Well-appearing, well-nourished, and in no acute distress. HEAD: Normocephalic, atraumatic. EYES: PERRLA and EOMI. ENT: Nares clear, no rhinorrhea or epistaxis. Mucous membranes moist. NECK: Supple. CHEST: Clear to auscultation. No respiratory distress. HEART: Regular rate and rhythm. No murmur heard. Normal peripheral pulses. ABDOMEN: Soft, nontender, nondistended, normal active bowel sounds. Drain is present on the left lower abdomen and extends beneath the subcu tissue. There is no surrounding erythema or tenderness. EXTREMITIES: Normal range of motion. No edema. SKIN: Warm, dry, no rash.
[2019-09-21] MEDS: SODIUM CHLORIDE 0.9% IV 1,000 ML 999 ML IV CONT (21:49)
[2019-09-21] MEDS: FAMOTIDINE 20 MG/2 ML VIAL IV PUSH (21:50)
[2019-09-21] MEDS: ONDANSETRON INJ 4 MG/2 ML VIAL IV PUSH ×2 (21:50→22:52)
--- NOTE | 2019-09-21 21:56 | PC.NURSE ---
PT STATES SHE CANNOT GIVE A URINE SAMPLE AT THIS TIME. FIRST LITER OF NS INFUSING AT THIS TIME.
[2019-09-21 23:06] LABS: Add Urine Microscopic? YES; Appearance Urine Clear (Clear); Bacteria Urine Trace /hpf; Bilirubin Urine Negative (Negative); Blood Urine 1+ (Negative); Color Urine Straw (Yellow); Glucose Urine UA 1+ mg/dL (Negative); Ketones Urine 1+ mg/dL (Negative); Leukocyte Esterase Ur Trace LEU/UL (Negative); Nitrate Urine Negative (Negative); Protein Urine Negative (Negative); Specific Grav Ur 1.028 (1.001-1.035); Squamous Epithelial Cell Urine Occasional /hpf (Few); Urobilinogen Urine Negative mg/dL (<2.0); WBC Urine 0-3 /hpf
[2019-09-22 00:13] VITALS: BP 125/73; PULSE 85; RESP 17; TEMP 37.6; O2SAT 95
[2019-09-22] MEDS: ACETAMINOPHEN 325 MG TABLET 650 MG PO (00:41)
[2019-09-22] MEDS: ONDANSETRON INJ 4 MG/2 ML VIAL IV PUSH (00:41)
== END 2019-09-22 01:05 | disposition home or self-care (01) ==
PROVIDERS: Emergency Provider Emergency Medicine
DX: K43.2 Incisional hernia without obstruction or gangrene (principal); R11.2 Nausea with vomiting, unspecified; Z87.891 Personal history of nicotine dependence; E11.9 Type 2 diabetes mellitus without complications; E78.5 Hyperlipidemia, unspecified
CPT/HCPCS: 36415; 71045; 74177; 80053; 81001; 83690; 85025; 96361; 96374; 96375; 96376; 99284; A9270; J2405; J7030; Q9967

== ENCOUNTER 2019-10-13 16:52 | Outpatient (CLI) | payer OTHER, SELFPAY ==
--- NOTE | ~2019-10-13 | US_ITS ---
EXAMINATION: US soft tissue abdomen INDICATION: Post procedural seroma of the skin and subcutaneous tissues TECHNIQUE: Targeted ultrasound is performed in the area of clinical concern. COMPARISON: CT, 09/21/2019 FINDINGS: An approximately 7.4 x 3.7 x 7.9 cm fluid collection is seen in the subcutaneous tissues co rresponding to the area of clinical concern which is near a surgical scar. No suspicious internal com plexity is identified. IMPRESSION: 1. Findings consistent with postoperative seroma corresponding to the area of clinical concern. Reviewed, dictated and finalized at location A. IMPRESSION: 1. Findings consistent with postoperative seroma corresponding to the area of c linical concern.
== END 2019-10-13 16:53 | disposition home or self-care (01) ==
PROVIDERS: PCP Surgery; Visit Provider Surgery
DX: L76.34 Postprocedural seroma of skin and subcutaneous tissue following other procedure (principal)
CPT/HCPCS: 76705

== ENCOUNTER 2019-10-15 22:00 | Observation (INO) | payer OTHER, SELFPAY ==
--- NOTE | ~2019-10-15 | CT_ITS ---
EXAMINATION: CT abdomen pelvis w con EXAM DATE: 10/16/2019 00:19 INDICATION: Postoperative, slight drainage from hernia repair. TECHNIQUE: Spiral CT of the abdomen and pelvis was performed following intravenous injection of 100 m L Omnipaque 350. Axial, coronal and sagittal images were reviewed. The dose-length product (DLP) fo r this examination was 301.85 mGy-cm. The exposure was tailored according to patient size (auto mA e xposure control), and iterative reconstruction (ASIR) was used as additional dose reduction technique . Comparison is made to prior examination from 09/21/2019. FINDINGS: In the midline between the umbilicus and pubis, superficial to the abdominalis musculature is a fluid collection measuring about 8 cm in diameter by 2.5 cm in thickness with enhancing organize d wall, small foci of gas. Appearance is consistent with an abscess. No fluid collection deep to the abdominal wall. The liver, spleen, adrenal glands and pancreas are unremarkable. Gallbladder is unremarkable. No bi liary obstruction. Portal and splenic veins are patent. Kidneys enhance symmetrically. There is no hydronephrosis. The uterus is not identified and has likely been surgically resected. The bladder is unremarkable. There is no retroperitoneal or pelvic lymphadenopathy. There is mild to moderate scattered arteriosclerotic disease. The appendix is normal. The stomach and small bowel are unremarkable. There is expected amount of c olonic stool. No free intraperitoneal gas. The heart is normal in size. There are no pericardial or pleural effusions. The lung bases are unremarkable. There are no osteoblastic or osteolytic les ions identified. There is right-sided L5 spondylolysis without spondylolisthesis. IMPRESSION: 1. Infraumbilical fluid collection consistent with abscess superficial to the abdominalis musculatur e. Reviewed, dictated and finalized at location G. IMPRESSION: 1. Infraumbilical fluid collection consistent with abscess superficial to the abdominalis musculature.
[2019-10-15 22:04] VITALS: BP 147/82; PULSE 96; RESP 20; TEMP 36.9; O2SAT 98
[2019-10-15 22:48] VITALS: BP 112/76; PULSE 88; RESP 15; TEMP 36.6; O2SAT 97
[2019-10-15 23:50] VITALS: BP 102/73; PULSE 90; RESP 17; O2SAT 96
--- NOTE | 2019-10-15 23:53 | ED.WOUNDLAC ---
HPI - Wound/Laceration General Chief Complaint: Wound/Laceration Stated Complaint: fluid coming from incision Time Seen by Provider: 10/15/19 23:29 Source: patient Mode of arrival: ambulatory Limitations: no limitations History of Present Illness HPI narrative: Pt presents for evaluation of abdominal wound leaking. Pt with recent hernia repair Dr. Rodriguez September 15. Had an ultrasound per chart review on October 12 that shows a postoperative seroma. Patient denied any pain. No fever, nausea or vomiting. Otherwise incision site appears to be well-healing. She just reports intermittent leaking and was concerned so wanted to be evaluated. She states the incision site appears clean and dry. Related Data Home Medications Medication Instructions Recorded Confirmed alendronate 70 mg tablet 70 mg PO WEEKLY 07/06/19 10/07/19 atorvastatin 20 mg tablet 20 mg PO HS 07/06/19 10/07/19 cholecalciferol (vitamin D3) 50 50 mcg PO DAILY 07/06/19 10/07/19 mcg (2,000 unit) capsule Complete Women 1 tablet PO DAILY 09/09/19 10/07/19 Victoza 2-Neymar 1.8 mg SUBCUT DAILY 09/09/19 10/07/19 biotin 10,000 mcg PO DAILY 09/09/19 10/07/19 chromium picolinate 1,000 mcg PO DAILY 09/09/19 10/07/19 cyanocobalamin (vitamin B-12) 1,000 mcg PO DAILY 09/09/19 10/07/19 Allergies Allergy/AdvReac Type Severity Reaction Status Date / Time banana Allergy Mild Itching Verified 10/15/19 22:51 kiwi Allergy Mild Itching Verified 10/15/19 22:51 Review of Systems Review of Systems: Narrative: CONSTITUTIONAL: Denies fever CARDIOVASCULAR: Denies chest pain RESPIRATORY: Denies cough or dyspnea. GASTROINTESTINAL: Denies abdominal pain SKIN: Denies rash MUSCULOSKELETAL: Denies back pain NEUROLOGIC: Denies headache PMFSH Past Medical History Medical History Carpal tunnel syndrome Diabetes Hyperlipidemia Neuropathy Surgical History Surgical History History of hysterectomy total History of placement of ear tubes History of tonsillectomy Family History Family History Father Heart disease Mother Diabetes mellitus Heart disease Grandparent Heart disease Cerebrovascular accident Sibling Diabetes mellitus Heart disease Sibling Diabetes mellitus Heart disease Sibling Diabetes mellitus Heart disease Other Hypertension Social History Social History Years smoked: 6 Smoking status: Former smoker Smoking end date: 03/24/75 Alcohol intake: current Drinks per week: 2 Substance use: current Substance use type: marijuana Other substance usage details: once daily Last use: 09/15/2019 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 EYES: PERRLA and EOMI. ENT: Nares clear, no rhinorrhea or epistaxis. Mucous membranes moist. NECK: Supple. CHEST: No respiratory distress, breathing even and non labored HEART: Regular rate, sinus rhythm ABDOMEN:Non distended, non tender, incision site clean, dry, intact, minimal yellow fluid drainage currently. No purulent drainage. No wound dehiscence. EXTREMITIES: Normal range of motion. No edema. SKIN: Warm, dry, no rash. NEURO:No focal deficits. Alert and oriented x3 Course Vital Signs Vital signs: Vital Signs Temperature 36.9 C 10/15/19 22:04 Pulse Rate 96 10/15/19 22:04 Respiratory Rate 20 10/15/19 22:04 Blood Pressure 147/82 H 10/15/19 22:04 Pulse Oximetry 98 10/15/19 22:04 Temperature 36.6 C 10/15/19 22:48 Pulse Rate 91 10/16/19 00:50 Respiratory Rate 12 10/16/19 00:50 Blood Pressure 108/74 10/16/19 00:50 Pulse Oximetry 94 10/16/19 00:50 M
[2019-10-15 23:55] LABS: Basophils Percent Auto 0.5 % (0.2-1.2); Eosinophils Absolute Auto 0.5 K/mm3 (0-0.3); Eosinophils Percent Auto 6.3 % (0-4.4); Hematocrit 31.9 % (37.0-47.0); Hemoglobin 10.8 g/dL (12.0-15.0); Immature Granulocyte Absolute 0.03 K/mm3 (0.00-0.031); Immature Granulocyte Percent A 0.4 % (0-0.5); Lymphocytes Absolute Auto 2.56 K/mm3 (0.9-3.2); Lymphocytes Percent Auto 32.4 % (18.3-44.2); Mean Corpuscular HGB Conc 33.9 g/dl (32-36); Mean Corpuscular Hemoglobin 31.7 pg (26-34); Mean Corpuscular Volume 93.5 fl (80-100); Mean Platelet Volume 10.2 fl (7.4-10.4); Monocytes Absolute Auto 0.6 K/mm3 (0.1-0.6); Monocytes Percent Auto 7.1 % (2.6-8.5); Neutrophils Absolute Auto 4.2 K/mm3 (1.3-6.7); Neutrophils Percent Auto 53.3 % (45.5-73.1); Platelet Count Result 205 k/mm3 (150-375); Red Blood Count 3.41 M/mm3 (4.2-5.4); Red Cell Distribution Width 12.4 % (11.5-14.5); White Blood Count 7.9 K/mm3 (4.5-10.0)
[2019-10-16 00:07] LABS: Alanine Aminotransferase 11 U/L (4-35); Albumin Level 3.8 g/dL (3.5-5.1); Alkaline Phosphatase 117 U/L (38-126); Anion Gap 11.7 mmol/L (7-16); Aspartate Amino Transferase 19 U/L (14-36); Bilirubin,Total 0.2 mg/dL (0.2-1.3); Blood Urea Nitrogen 13 mg/dL (7-17); Calcium 9.1 mg/dL (8.4-10.2); Carbon Dioxide 27 mmol/L (22-30); Chloride 102 mmol/L (98-107); Estimated Glomerular Filt Rate > 60; Glucose 241 mg/dL (65-105); Lipase 43 U/L (23-300); Potassium 3.7 mmol/L (3.4-5.0); Sodium 137 mmol/L (137-145)
[2019-10-16 00:27] LABS: Add Urine Microscopic? YES; Appearance Urine Clear (Clear); Bilirubin Urine Negative (Negative); Calcium Oxalate Crystals Urine Many /hpf; Color Urine Yellow (Yellow); Glucose Urine UA 1+ mg/dL (Negative); Ketones Urine Negative (Negative); Leukocyte Esterase Ur 3+ LEU/UL (Negative); Mucus Urine Few /lpf; Nitrate Urine Negative (Negative); Protein Urine Negative (Negative); Squamous Epithelial Cell Urine Few /hpf (Few); WBC Urine 21-30 /hpf
[2019-10-16 00:29] LABS: Blood Urine Negative (Negative); Specific Grav Ur 1.031 (1.001-1.035)
[2019-10-16 00:50] VITALS: BP 108/74; PULSE 91; RESP 12; O2SAT 94
[2019-10-16 02:25] VITALS: BP 116/71; PULSE 90; RESP 19; O2SAT 95
--- NOTE | 2019-10-16 02:35 | ADMGEN ---
This patient, Katerina Lee, was admitted to Medical Room 347-. Patient/family oriented to hospital policies and general routines including ID bracelet, bed and alarms, visiting hours, pain management, procedures, bathroom and other care routines, personal items, smoking policy, room service/diet, and visiting hours. Valuables list has been completed. Information on how to activate the Rapid Response Team has been discussed. Patient/Family are encouraged to report perceived risks to care and to ask questions if they do not understand what they are told or what they should do.
[2019-10-16 02:36] VITALS: BP 132/79; PULSE 91; RESP 16; TEMP 37; O2SAT 99
[2019-10-16 02:39] VITALS: BMI 25.1
[2019-10-16] MEDS: LIDOCAINE HCL 1% LOCAL INJ 10 ML VIAL INFILTRATE (08:44)
--- NOTE | 2019-10-16 08:48 | PM.IMHP ---
H&P: HPI History of Present Illness Chief complaint: Post operative abscess Narrative: Katerina Lee is a 63 year old female s/p ventral hernia repair c bilateral component seperation on 09/15. Postoperatively, pt has developed seroma/hematoma in her subcutaneous tissue. Pt has been being treated conservatively c a course of po abx. Pt reports she was laying on couch last night when she noted increased drainage from wound. Pt denies any pain, f/c, etc. Pt came to ED for eval and CT suggestive of abscess. Pt admitted for further eval. Review of Systems Constitutional: Constitutional: Denies chills, Denies fatigue, Denies lethargy and Denies weakness Eyes: Eyes: Reports no additional eye complaints ENT: Reports Normal hearing present and Denies dysphagia Cardiovascular: Cardiovascular: Denies chest pain and Denies palpitations Respiratory: Respiratory: Denies dyspnea Gastrointestinal: Gastrointestinal: Denies abdominal pain, Denies constipation, Denies diarrhea, Denies nausea and Denies vomiting Genitourinary: Genitourinary: Denies hematuria and Denies dysuria Musculoskeletal: Musculoskeletal: Denies no additional musculoskeletal complaints Integumentary/Breasts: Skin/Breast: Denies system reviewed and no additional complaints, except as docu Neurologic: Denies system reviewed and no additional complaints, except as documented Psychiatric: Psychiatric: Denies no additional psychiatric complaints [facility] Past Medical History Medical History Carpal tunnel syndrome Diabetes Hyperlipidemia Neuropathy Surgical History Surgical History History of hysterectomy total History of placement of ear tubes History of tonsillectomy Family History Family History Father Heart disease Mother Diabetes mellitus Heart disease Grandparent Heart disease Cerebrovascular accident Sibling Diabetes mellitus Heart disease Sibling Diabetes mellitus Heart disease Sibling Diabetes mellitus Heart disease Other Hypertension Social History Social History Smoking packs per day: 1.5 Smoking cigarettes per day: 30.0 Years smoked: 6 Smoking pack-years: 9.00 Smoking status: Former smoker Tobacco type: cigarettes Smoking end date: 03/24/75 Alcohol intake: current Drinks per week: 2 Substance use: current Substance use type: marijuana Other substance usage details: once daily Last use: 09/15/2019 Additional occupation/education comments: Cook Gender identity (if verbalized by the patient): Female Sexual Orientation (if Verbalized by the Patient): Straight or Heterosexual Spiritual care concerns: No Meds Home Medications and Allergies Home Medications Medication Instructions Recorded Confirmed Type alendronate 70 mg tablet 70 mg PO WEEKLY 07/06/19 10/16/19 History atorvastatin 20 mg tablet 20 mg PO HS 07/06/19 10/16/19 History cholecalciferol (vitamin D3) 50 50 mcg PO DAILY 07/06/19 10/16/19 History mcg (2,000 unit) capsule Complete Women 1 tablet PO DAILY 09/09/19 10/16/19 History Victoza 2-Neymar 1.8 mg SUBCUT DAILY 09/09/19 10/16/19 History biotin 10,000 mcg PO DAILY 09/09/19 10/16/19 History chromium picolinate 1,000 mcg PO DAILY 09/09/19 10/16/19 History cyanocobalamin (vitamin B-12) 1,000 mcg PO DAILY 09/09/19 10/16/19 History acetaminophen [Tylenol] 650 mg PO PRN PRN 10/16/19 10/16/19 History Allergies Allergy/AdvReac Type Severity Reaction Status Date / Time banana Allergy Mild Itching Verified 10/16/19 03:01 kiwi Allergy Mild Itching Verified 10/16/19 03:01 Vital Signs Vital Signs - 24 hr 10/15/19 22:04 10/15/19 22:48 10/15/19 23:50 Temperature 36.9 C 36.6 C Pulse Rate 96 88 90 Respiratory Rate 20 15 17 Blood Pressure 147/82 H 112/76 102/7
--- NOTE | 2019-10-16 08:55 | PM.PROC ---
Procedure Note - Detailed Date of procedure: 10/16/19 Pre-op diagnosis: Post operative abscess Post-op diagnosis: same ( measurements of 6 x 4 x 10 cm) Procedure performed: complex incision and drainage subcutaneous fluid collection measuring 6 x 4 x 10 cm Description of procedure: Patient was placed in the supine position. Local anesthesia with 1% lidocaine was injected around the anticipated incision site. After the area was locally anesthetized, I went ahead and prepped the area with Betadine. I then made a incision over the most fluctuant area with a 11 blade scalpel. I then used a hemostat to bluntly dissect down to the cavity. Once in the cavity, a large amount of brownish thin fluid was expressed from the wound. Once completely drained, I used the hemostat to bluntly dissect around this cavity. As noted to measure approximately 6 x 4 x 10 cm and was completely located in the subcutaneous space. This was noted not to involve the underlying fascia. I then packed the cavity with quarter-inch iodoform to keep the area open and draining. Sterile dressing was then placed. The patient tolerated the procedure well. Anesthesia: local Surgeon: Clarisse Goldstein MD Estimated blood loss (mL): 0 Drains: No Packing: Yes Pathology: none sent Complications: No immediate complications Condition: stable Disposition: no change Findings: Subcutaneous fluid collection measuring 6 x 4 x 10 cm with thin brownish fluid
--- NOTE | 2019-10-16 09:01 | PM.DS ---
DS: Admitting Diagnosis Admitting Diagnosis Admitting Diagnosis: postoperative wound infection DS: Discharge Diagnosis Discharge Diagnosis (1) Abdominal fluid collection: Code(s): R18.8 - Other ascites Status: Acute Assessment and Plan: status post incision and drainage, see full operative report for details, will DC home with antibiotics, local wound care, follow-up with Dr. Rodriguez on 10/17 (2) Ventral incisional hernia without obstruction or gangrene: Code(s): K43.2 - Incisional hernia without obstruction or gangrene Status: Resolved Assessment and Plan: no signs and symptoms of recurrence, continue light activity restrictions (3) Diabetes: Qualifiers: Diabetes mellitus type: type 2 Diabetes mellitus medical terminologist insulin use: without mcc use Diabetes mellitus complication status: without complication Qualified Code(s): E11.9 - Type 2 diabetes mellitus without complications Code(s): E11.9 - Type 2 diabetes mellitus without complications Status: Chronic Assessment and Plan: stable, continue management per primary team DS: Summary Time Spent with Patient Time attestation: Total time spent providing and/or coordinating discharge services: Exam Const: General: no acute distress HENMT: Mouth: Yes moist mucous membranes Eyes: Pupils: Equal, round and reactive pupils present EOM: EOMs intact bilaterally Neck: Neck: supple and no JVD Lymphatic: lymphadenopathy not noted Resp: Auscultation: clear to auscultation bilaterally Cardio: Rate: regular rate Rhythm: regular rhythm GI: Other: S, sl dist, NT, incision c open area that has been drained, mild cellulitis Skin: General skin exam: normal color and erythema Neuro: Motor exam (neuro): 5/5 motor strength present throughout Extrem: General: normal to inspection Psych: Mental Status: mental status grossly normal DS: Data Data Completed and Pending Labs on day of discharge: Labs from last 24 hours 10/16/19 10/15/19 10/15/19 00:08 23:49 23:49 WBC 7.9 RBC 3.41 L Hgb 10.8 L Hct 31.9 L MCV 93.5 MCH 31.7 MCHC 33.9 RDW 12.4 Plt Count 205 MPV 10.2 Immature Gran % (Auto) 0.4 Neut % (Auto) 53.3 Lymph % (Auto) 32.4 [place] % (Auto) 7.1 Eos % (Auto) 6.3 H Baso % (Auto) 0.5 Lymph # (Auto) 2.56 [place] # (Auto) 0.6 Eos # (Auto) 0.5 H Baso # (Auto) 0.0 Abs Immat Gran (auto) 0.03 Absolute Neuts (auto) 4.2 Absolute Nucleated RBC 0.0 Nucleated RBC % 0.0 Sodium 137 Potassium 3.7 Chloride 102 Carbon Dioxide 27 Anion Gap 11.7 BUN 13 D Creatinine 0.50 L Estim Creat Clear Calc Not Reportable Estimated GFR > 60 Glucose 241 H Calcium 9.1 Total Bilirubin 0.2 AST 19 ALT 11 Alkaline Phosphatase 117 Total Protein 7.0 Albumin 3.8 Lipase 43 Urine Color Yellow Urine Appearance Clear Urine pH 5.0 Ur Specific [place] 1.031 Urine Protein Negative Urine Glucose (UA) 1+ H Urine Ketones Negative Ur Blood (Man) Negative Urine Nitrate Negative Urine Bilirubin Negative Urine Urobilinogen 2.0 H Leukocyte Esterase Rfl 3+ H Urine RBC 11-20 H Urine WBC 21-30 H Ur Squamous Epith Cells Few Calcium Oxalate Crystal Many Urine Mucus Few H Discharge Plan Discharge Attending physician on discharge: Clarisse Goldstein Consulting providers: Rio Flores Discharging Clinician: Clarisse Goldstein Anticipated Discharge Date/Time: 10/16/19 09:04 Patient Disposition: Home, Self-Care Activity: no shower and no straining Diet: as tolerated Wound Care Instructions: keep dressing dry, remove dressing to shower and change dressing daily Patient Instructions: Antibiotic Form Stand Alone Forms: General Discharge Information Follow-up/Referrals: Jose Rodriguez MD [Physician] - Keep Reg. Scheduled Appt. Disc
== END 2019-10-16 12:40 | disposition home or self-care (01) ==
LOC: ANHED 10-16 01:49 → ANH3MED 10-16 02:13
PROVIDERS: Admitting Provider Surgery; Emergency Provider Emergency Medicine; Visit Provider Surgery
DX: T81.41XA Infection following a procedure, superficial incisional surgical site, initial encounter (principal); L02.818 Cutaneous abscess of other sites; R18.8 Other ascites; E11.40 Type 2 diabetes mellitus with diabetic neuropathy, unspecified; E78.5 Hyperlipidemia, unspecified; Z87.891 Personal history of nicotine dependence
CPT/HCPCS: 10061; 36415; 74177; 80053; 81001; 83690; 85025; 87077; 87086; 87088; 96365; 99285; G0378; G0379; J2543; Q9967

== ENCOUNTER 2020-01-27 07:43 | Outpatient (RCR) | payer OTHER, SELFPAY ==
[2019-11-01 10:33] VITALS: BMI 25.1
--- NOTE | 2019-11-30 13:20 | P.PNWOUND_ITS ---
Wound Care Note Date/Time: 11/30/19 13:20 Patient is seen again in the wound clinic regarding the slowly healing subcutaneous pocket. Patient had incisional hernia repair with bilateral transversus abdominis release on September 16, 2019. A full month after the procedure, October 16, 2019, she presented with a wound infection. Dr. Triston mosley jocelyn this and packed it, finding a large subcutaneous pocket about 10 x 6 cm. It seemed to contain mostly serous fluid that was brown tinged. Since the drainage procedure, we have continued to follow the patient about every 2 weeks. In general the wound cavity has shrunken considerably but she continues to have a subcutaneous tract of over 7 cm in length. She has been placing Aquacel Silver rope the length of the wound cavity but still notices quite a bit of serosanguineous drainage each day. She is having no complaints of pain or fever or other issues. Assessment and Plan Assessment and plan (1) Encounter for other specified surgical aftercare: Code(s): Z48.89 - Encounter for other specified surgical aftercare Status: Chronic Assessment and Plan: Wound is clean and appears to be granulating but does not seem to be closing. Long 7.5 cm narrow tract remains. Continue aqua ethan silver rope and recheck again in 3 weeks. I discussed with her options including opening of the abd ominal wound for better inspection and possible debridement. This would likely require wound VAC therapy and would take many weeks to close. Patient is reluctant to proceed with that since she is essentially asymptomatic but is continuing to require dressing changes. Will recheck at her next visit, December 22, and reassess again at that time. (2) Open abdominal wall wound: Qualifiers: Encounter type: subsequent encounter Qualified Code(s): S31.109D - Unspecified open wound of abdominal wall, unspecified quadrant without penetration into peritoneal cavity, subsequent encounter Code(s): S31.109A - Unspecified open wound of abdominal wall, unspecified quadrant without penetration into peritoneal cavity, initial encounter Status: Chronic Assessment and Plan: See above (3) Ventral incisional hernia without obstruction or gangrene: Code(s): K43.2 - Incisional hernia without obstruction or gangrene Status: Resolved Review of Systems Review of Systems: All systems reviewed & are unremarkable except as noted in HPI and below ( HPI and below) Constitutional: Constitutional: Denies body ache(s), Denies chills, Denies fatigue and Denies fever(s) Gastrointestinal: Gastrointestinal: Denies abdominal pain, Denies bloating, Denies GI cramping and Denies nausea Exam Const: General: cooperative, healthy appearing, well developed, alert and awake Nutritional Appearance: average body habitus and well nourished Orientation/consciousness: patient oriented x3 Limitations: no limitations GI: Inspection: incision ( small residual opening in the lower part of the incision as before) GI Palp: Yes Other GI palpation findings present ( granulation tissue present. Q-tip placed- the cavity remains about 7.5cm) Other: Minimal residual cavity, just a small tunnel 7.5 cm in length. No purulent fluid or foreign bodies appreciated.
--- NOTE | 2019-11-30 13:35 | WPDWOUNDNOTE ---
Wound Care Note Date/Time: 11/01/19 10:35 patient seen in the wound clinic regarding seroma of the abdominal subcutaneous after incisional hernia repair and bilateral transversus abdominis release done 09/16/2019. This seroma was drained on October 16, 2019. Patient has no complaints but still is having a fair amount of drainage from a small opening in the lower abdomenal incision. Assessment and Plan Assessment and plan (1) Encounter for other specified surgical aftercare: Code(s): Z48.89 - Encounter for other specified surgical aftercare Status: Chronic Assessment and Plan: No sign of infection. Large cavity from seroma has shrunken to a tract. Will start aqua ethan silver rope placement in the tract and daily dressing changes with gauze. Recheck again in 2 weeks. (2) Open abdominal wall wound: Qualifiers: Encounter type: subsequent encounter Qualified Code(s): S31.109D - Unspecified open wound of abdominal wall, unspecified quadrant without penetration into peritoneal cavity, subsequent encounter Code(s): S31.109A - Unspecified open wound of abdominal wall, unspecified quadrant without penetration into peritoneal cavity, initial encounter Status: Chronic (3) Ventral incisional hernia without obstruction or gangrene: Code(s): K43.2 - Incisional hernia without obstruction or gangrene Status: Resolved Exam GI: Inspection: incision ( lower 2/3 shows small 1.5 cm opening in otherwise healing incision) GI Palp: Yes Other GI palpation findings present ( Q-tip shows 7.5 cm cephalad tracking) Other: no purulent material and cavity seems to be smaller.
--- NOTE | 2019-11-30 13:39 | WPDWOUNDNOTE ---
Wound Care Note Date/Time: 11/15/19 12:39 Patient seen in the wound clinic again regarding the seroma to the subcutaneous overlying her incisional hernia repair. No complaints or problems. Drainage per wound is slightly decreased, still serosanguineous. Assessment and Plan Assessment and plan (1) Encounter for other specified surgical aftercare: Code(s): Z48.89 - Encounter for other specified surgical aftercare Status: Chronic Assessment and Plan: No signs of infection. Wound tract seems slightly shorter. Overall cavity dimensions are less. Continue silver rope dressings to pull exudate out of the wound and promote closure. This also provides a topical had a microbial coverage. I will recheck her again in approximately 2 weeks. (2) Open abdominal wall wound: Qualifiers: Encounter type: subsequent encounter Qualified Code(s): S31.109D - Unspecified open wound of abdominal wall, unspecified quadrant without penetration into peritoneal cavity, subsequent encounter Code(s): S31.109A - Unspecified open wound of abdominal wall, unspecified quadrant without penetration into peritoneal cavity, initial encounter Status: Chronic (3) Ventral incisional hernia without obstruction or gangrene: Code(s): K43.2 - Incisional hernia without obstruction or gangrene Status: Resolved Exam GI: Inspection: other ( Open wound to thirds way down midline incision) GI Palp: No Tenderness to palpation present (GI) and Yes Other GI palpation findings present ( Q-tip passes 7 cm cephalad slightly less than last time) Other: pink granulating abdominal wound tract. overall cavity smaller.
--- NOTE | 2020-01-27 10:57 | WPDWOUNDNOTE ---
Wound Care Note Date/Time: 01/27/20 10:57 History: Patient underwent repair of incisional hernias with bilateral transversus abdominis myofascial flap advancement and retro rectus placement of mesh on September 16, 2019. This was complicated by a postoperative seroma which began draining through the skin. This was evacuated by Dr. Goldstein on October 16, 2019. We have continued to follow the patient. At the time of the seroma evacuation, there was no evidence of mesh exposure or chronic wound infection. However, there has been persistent tracking and incomplete healing of the seroma cavity. The patient is seen today in the wound clinic for follow-up. She is continuing to dress the opening with Kassandra. Wound history: Chronic tracking after extensive incisional hernia repair with retro rectus mesh and postoperative seroma evacuation as noted above. Wound approximation: Yes (Small opening consistent with the tract.) Wound width: 2 x 2 mm Wound length: Tracks at least 7-10 cm cephalad up the midline incision. Wound depth: 2-1/2 cm Drainage: Serous sometimes blood-tinged Surrounding tissue appearance: Healthy Tunneling: This is all tunneling of a subcutaneous tract. See above Treatment/Procedures: None Dressings: Continue Kassandra and dry gauze dressings Assessment and Plan Assessment and plan (1) Open abdominal wall wound: Qualifiers: Encounter type: subsequent encounter Qualified Code(s): S31.109D - Unspecified open wound of abdominal wall, unspecified quadrant without penetration into peritoneal cavity, subsequent encounter Code(s): S31.109A - Unspecified open wound of abdominal wall, unspecified quadrant without penetration into peritoneal cavity, initial encounter Status: Chronic Assessment and Plan: This does not appear to be healing at all. After discussion with the patient, I have recommended we go back to surgery an open the overlying subcutaneous. We would debride the wound tract of granulation tissue and any other foreign material that might be keeping it from healing. She would have an open wound that we would need to provide wound care for and would half to heal secondarily. I discussed this with her and she agrees to go ahead. We will schedule this to be done as an outpatient but she understands she may need to stay overnight in the hospital for wound care or pain management. (2) Ventral incisional hernia without obstruction or gangrene: Code(s): K43.2 - Incisional hernia without obstruction or gangrene Status: Resolved Assessment and Plan: No evidence of recurrent hernia (3) Diabetes: Qualifiers: Diabetes mellitus type: type 2 Diabetes mellitus long term care administrator insulin use: without nursing home use Diabetes mellitus complication status: without complication Qualified Code(s): E11.9 - Type 2 diabetes mellitus without complications Code(s): E11.9 - Type 2 diabetes mellitus without complications Status: Chronic (4) Neuropathy: Code(s): G62.9 - Polyneuropathy, unspecified Status: Chronic Review of Systems Review of Systems: All systems reviewed & are unremarkable except as noted in HPI and below Constitutional: Constitutional: Denies headache(s) Cardiovascular: Cardiovascular: Denies chest pain and Denies dyspnea Respiratory: Respiratory: Denies cough and Denies dyspnea Gastrointestinal: Gastrointestinal: Denies bloating, Denies constipation and Denies nausea Integumentary/Breasts: Skin/Breast: Denies lesions and Denies rash Neurologic: Denies confusion and Denies headache(s) Exam Const: General: comfortable, no acute distress, alert and awake HENMT: Head: normocephalic and atraumatic Mouth: Yes Normal oral and palatal mucosa present Eyes: Conjunctivae: conjunctivae normal Pupils: Equal, round and reactive pupils present EOM: EOMs intact bilaterally Neck: Neck: normal visual inspection, no lymphadenopathy and nontender Resp: Effort & Ins
== END 2020-01-30 23:59 | disposition home or self-care (01) ==
LOC: ANHWOC 07:43
PROVIDERS: Visit Provider Surgery
DX: T81.31XD Disruption of external operation (surgical) wound, not elsewhere classified, subsequent encounter (principal)
CPT/HCPCS: 99212; A9270; G0463

== ENCOUNTER 2020-02-07 07:18 | Outpatient (CLI) | payer OTHER, SELFPAY ==
[2020-02-07 21:22] LABS: SARS-CoV-2 RNA PCR Negative
== END 2020-02-07 07:19 | disposition home or self-care (01) ==
LOC: ANHCOVIDDT 07:18
PROVIDERS: Visit Provider Surgery
DX: Z20.828 Contact with and (suspected) exposure to other viral communicable diseases (principal); Z01.812 Encounter for preprocedural laboratory examination
CPT/HCPCS: 87635; C9803; U0003

== ENCOUNTER 2020-02-10 02:08 | Day surgery (SDC) | payer OTHER, SELFPAY ==
[2020-02-07 14:19] VITALS: BMI 25.8
--- NOTE | 2020-02-09 14:37 | WPDANESEPPF ---
Anes - Initial Pre Proc Eval Procedure: Operation Date: 02/10/20 10:30 Proposed Procedures p Debridement of Chronic Abdominal Wound - Jose Rodriguez MD Date/Time: 02/09/20 14:37 Surgeon: Jose Rodriguez MD Pre Op Diagnosis: Chronic Abdominal Wound Patient Data Age: 64 Gender: F Height: 1.47 m Weight: 56 kg Allergies Allergy/AdvReac Type Severity Reaction Status Date / Time banana Allergy Mild Itching Verified 02/07/20 14:16 kiwi Allergy Mild Itching Verified 02/07/20 14:16 Home Medications Medication Instructions Recorded Confirmed Type alendronate 70 mg tablet 70 mg PO WEEKLY 07/06/19 02/10/20 History atorvastatin 20 mg tablet 20 mg PO HS 07/06/19 02/10/20 History cholecalciferol (vitamin D3) 50 50 mcg PO DAILY 07/06/19 02/10/20 History mcg (2,000 unit) capsule Complete Women 1 tablet PO DAILY 09/09/19 02/10/20 History Victoza 2-Neymar 1.8 mg SUBCUT DAILY 09/09/19 02/10/20 History chromium picolinate 1,000 mcg PO DAILY 09/09/19 02/10/20 History cyanocobalamin (vitamin B-12) 1,000 mcg PO DAILY 09/09/19 02/10/20 History Patient hx anesthesia problems: none Family hx anesthesia problems: none PMFSH Past Medical History Medical History (Updated 11/30/19 @ 13:34 by Jose Rodriguez MD) Carpal tunnel syndrome Diabetes Hyperlipidemia Neuropathy Surgical History Surgical History History of hysterectomy total History of placement of ear tubes History of tonsillectomy Family History Family History Father Heart disease Mother Diabetes mellitus Heart disease Grandparent Heart disease Cerebrovascular accident Sibling Diabetes mellitus Heart disease Sibling Diabetes mellitus Heart disease Sibling Diabetes mellitus Heart disease Other Hypertension Social History Social History Smoking packs per day: 1.5 Smoking cigarettes per day: 30.0 Years smoked: 6 Smoking pack-years: 9.00 Smoking status: Former smoker Tobacco type: cigarettes Smoking end date: 03/24/75 Alcohol intake: current Drinks per week: 2 Substance use: current Substance use type: marijuana Other substance usage details: once daily Last use: 09/15/2019 Living arrangements: with family Additional occupation/education comments: [employer] Gender identity (if verbalized by the patient): Female Spiritual care concerns: No Anes - Eval Final PreProcedure Day of Procedure 02/09/20 14:37 Patient weight: overweight Heart: regular rate and rhythm Lungs: clear to auscultation and normal air movement Airway: Mallampati scale class II Neurological: alert and oriented Last oral intake: >/= 8 hours ASA classification: III Emergent: no Anesthetic plan: proceed Anesthesia type and monitoring: general ETT and standard monitoring Informed Consent: The patient's anesthetic plan and its attendant risks and benefits were discussed with the patient/family/POA. Questions were solicited and answers provided to the satisfaction of the patient/family/POA.
[2020-02-10] VITALS (8 sets, daily range): BP systolic 143–185; BP diastolic 82–94; PULSE 70–78; RESP 12–20; TEMP 36.2–36.3; O2SAT 100
[2020-02-10] MEDS: LACTATED RINGERS 1,000 ML 30 ML IV CONT ×2 (09:35→12:05)
[2020-02-10 09:39] LABS: Glucose Point of Care 207 (65-105)
--- NOTE | 2020-02-10 10:29 | WPDHPUPDATE1 ---
History and Physical Update Update Date/Time: 02/10/20 10:29 History and Physical has been reviewed, including an updated exam of the patient. There are NO changes in the patient's condition. Risks, benefits, and alternatives have been discussed and questions answered. Patient agrees to proceed with procedure.
[2020-02-10] MEDS: ceFAZolin 2 GM/D5W 50 ML 2 GM/50 ML BAG IVPB (10:41)
[2020-02-10 12:01] LABS: Glucose Point of Care 169 (65-105)
--- NOTE | 2020-02-10 12:02 | PM.PROC ---
Procedure Note - Detailed Date of procedure: 02/10/20 Pre-op diagnosis: Chronic Abdominal Wound Chronic abdominal wound Post-op diagnosis: other (Chronic wound seroma) Procedure performed: Excision of chronic wound seroma Description of procedure: The patient was taken to surgery and general anesthesia with LMA was introduced. The abdomen was prepped and draped. The skin opening in the lower abdomen was indented with a fold of skin tissue. This was probed with a narrow clamp and the tract went nearly to the upper aspect of the midline abdominal scar. I tried to remove any foreign material that might be in the wound with a clamp but there was none. Only granulation tissue was noted. I infiltrated local anesthetic around the open sinus tract and then excised the tract with the subcutaneous and surrounding skin in a transverse orientation. This was excised down to the abdominal fascia. From there I can see a chronic subcutaneous tract with much granulation tissue lining the bhatt. It was a thick fibrotic tract consistent with a chronic seroma. I infiltrated additional local in the skin and subcutaneous cephalad to this. I gradually opened the tract and the overlying tissues as I moved cephalad. Additional local was infiltrated and the process was continued. When I reached the cephalad most aspect of the seroma, the overlying wound was left in place. The seroma however was wide open and colon granulation tissue. I used a curette and curetted all the granulation tissue away. This still left a well-defined fibrotic pocket in the subcutaneous and laying on the anterior abdominal wall fascia. I excised this fibrotic seroma entirely taking care to leave the anterior abdominal wall fascia and nearly all the subcutaneous tissue attached to it. This with the skin opening was sent labeled abdominal wall seroma. I then meticulously went about achieving good hemostasis over the entire wound. The wound was then dressed with 2 rolls of vaginal packing, Kerlix, and ABDs. Medipore tape was used. The patient was awakened and taken to recovery in good condition. Anesthesia: GLMA and local (0.5% Marcaine with Exparel, 20 cc of each.) Surgeon: Jose Rodriguez MD Estimated blood loss (mL): 10 Drains: No Packing: Yes (Vaginal packing) Pathology: yes (Chronic abdominal wound seroma) Complications: None Condition: stable Disposition: PACU Findings: Chronic abdominal wound seroma with skin opening in lower aspect of midline incision.
[2020-02-10] MEDS: BUPIVACAINE HCL 0.5% PF 30 ML VIAL 20 ML INFILTRATE (12:47)
[2020-02-10] MEDS: ONDANSETRON INJ 4 MG/2 ML VIAL IV PUSH (13:36)
== END 2020-02-10 13:58 | disposition home or self-care (01) ==
PROVIDERS: Visit Provider Surgery
PROC: 0HQ7XZZ Repair Abdomen Skin, External Approach (ICD-10-PCS; CPT 49900; principal; 2020-02-10 10:30)
DX: L76.34 Postprocedural seroma of skin and subcutaneous tissue following other procedure (principal); T81.89XA Other complications of procedures, not elsewhere classified, initial encounter; Y83.8 Other surgical procedures as the cause of abnormal reaction of the patient, or of later complication, without mention of misadventure at the time of the procedure; E11.40 Type 2 diabetes mellitus with diabetic neuropathy, unspecified; E78.5 Hyperlipidemia, unspecified; Z87.891 Personal history of nicotine dependence; F12.90 Cannabis use, unspecified, uncomplicated
CPT/HCPCS: 11406; 88304; A9270; C9290; J0690; J2250; J2405; J3010; J7120

== ENCOUNTER 2020-03-18 11:20 | Emergency (ER) | payer OTHER, SELFPAY ==
[2020-03-18 11:29] VITALS: PULSE 87; RESP 20; TEMP 37.2; O2SAT 100
--- NOTE | 2020-03-18 11:44 | ED.SKABFB ---
HPI - Skin/Abscess/Foreign Bdy General Chief complaint: Skin/Abscess/Foreign Body Stated complaint: rash Time Seen by Provider: 03/18/20 11:40 Source: patient and RN notes reviewed Mode of arrival: ambulatory Limitations: no limitations History of Present Illness HPI narrative: 64-year-old female presents concern for itchy rash. Reports rash started yesterday, reports itchy patches on her abdomen, bilateral lower legs, arms. Reports she has been taking Benadryl before 6 hours with no relief. She denies any swollen lips, swollen tongue, difficulty breathing. Denies any known triggers, new soaps, household products, medicines, foods. MD complaint: rash Related Data Home Medications Medication Instructions Recorded Confirmed alendronate 70 mg tablet 70 mg PO WEEKLY 07/06/19 03/18/20 atorvastatin 20 mg tablet 20 mg PO HS 07/06/19 03/18/20 cholecalciferol (vitamin D3) 50 50 mcg PO DAILY 07/06/19 02/10/20 mcg (2,000 unit) capsule Complete Women 1 tablet PO DAILY 09/09/19 02/10/20 chromium picolinate 1,000 mcg PO DAILY 09/09/19 02/10/20 cyanocobalamin (vitamin B-12) 1,000 mcg PO DAILY 09/09/19 02/10/20 duloxetine 30 mg PO DAILY 03/18/20 03/18/20 Allergies Allergy/AdvReac Type Severity Reaction Status Date / Time banana Allergy Mild Itching Verified 02/07/20 14:16 kiwi Allergy Mild Itching Verified 02/07/20 14:16 Review of Systems Review of Systems: Narrative: CONSTITUTIONAL: Denies malaise, chills, sweats, or fever. EYES: Denies visual changes, redness, or discharge. ENT: Denies rhinorrhea, congestion,swollen lips, swollen tongue, difficulty swallowing CARDIOVASCULAR: Denies chest pain, palpitations, or edema. RESPIRATORY: Denies cough or dyspnea. GASTROINTESTINAL: Denies abdominal pain, diarrhea. Reports one episode of nausea and vomiting yesterday before the rash started SKIN: Patches on back, abdomen, arms, legs MUSCULOSKELETAL: Denies myalgia. All systems reviewed & are unremarkable except as noted in HPI and below PMFSH Past Medical History Medical History (Updated 03/18/20 @ 11:50 by Gabriela S. Hilmes, [employer] ARCHEOLOGY PROFESSOR) Carpal tunnel syndrome Diabetes Hyperlipidemia Neuropathy Surgical History Surgical History History of hysterectomy total History of placement of ear tubes History of tonsillectomy Family History Family History Father Heart disease Mother Diabetes mellitus Heart disease Grandparent Heart disease Cerebrovascular accident Sibling Diabetes mellitus Heart disease Sibling Diabetes mellitus Heart disease Sibling Diabetes mellitus Heart disease Other Hypertension Social History Social History Smoking packs per day: 1.5 Smoking cigarettes per day: 30.0 Years smoked: 6 Smoking pack-years: 9.00 Smoking status: Former smoker Tobacco type: cigarettes Smoking end date: 03/24/75 Alcohol intake: current Drinks per week: 2 Substance use: current Substance use type: marijuana Other substance usage details: once daily Last use: 09/15/2019 Additional occupation/education comments: [employer] Gender identity (if verbalized by the patient): Female Spiritual care concerns: No Comments At time of signature, agree with nursing past medical, surgical, social and family history. There is no relevant family history pertinent to the presenting complaint Exam Narrative: Exam Narrative: GENERAL: Well-appearing, well-nourished, and in no acute distress. HEAD: Normocephalic, atraumatic. EYES: PERRLA, conjunctivae clear, and EOMI. ENT: Mucous membranes moist. Oropharynx without edema, erythema or lesions. NECK: Supple. No lymphadenopathy CHEST: Clear to auscultation. No respiratory distress. HEART: Regular rate and rhythm. SKIN: Warm, dry. Nonuniform maculopapular patches of erythema to the bilateral arms, l
[2020-03-18 12:08] VITALS: BP 136/81
== END 2020-03-18 11:53 | disposition home or self-care (01) ==
PROVIDERS: Emergency Provider Nurse Practitioner
DX: L30.9 Dermatitis, unspecified (principal); Z87.891 Personal history of nicotine dependence; E11.40 Type 2 diabetes mellitus with diabetic neuropathy, unspecified; E78.5 Hyperlipidemia, unspecified
CPT/HCPCS: 99213; G0463

== ENCOUNTER 2020-05-05 08:05 | Outpatient (RCR) | payer OTHER, SELFPAY ==
--- NOTE | 2020-04-17 13:57 | WPDWOUNDNOTE ---
Wound Care Note Date/Time: 04/17/20 13:57 No new complaints or problems. Wound VAC was stopped about 1 month ago. Patient has been using antifungal clear cream to the surrounding skin. She has also been using silver rope with gauze and ABD pad to the open wound. Assessment and Plan Assessment and plan (1) Open abdominal wall wound: Qualifiers: Encounter type: subsequent encounter Qualified Code(s): S31.109D - Unspecified open wound of abdominal wall, unspecified quadrant without penetration into peritoneal cavity, subsequent encounter Code(s): S31.109A - Unspecified open wound of abdominal wall, unspecified quadrant without penetration into peritoneal cavity, initial encounter Status: Chronic Assessment and Plan: Continues to get smaller and is 100% pink and granulating. She still uses the clear antifungal cream to the surrounding skin. Wound VAC has been off for about a month. There is no longer any tunneling. Putting silver rope gauze and ABD pad over the wound to cover. As I mentioned, the triangular shape of the wound with a small abdominal panniculus making wound depth on 2 sides of the wound is contributing to slow healing. Will continue present treatment but if wound healing stagnated, may need to consult Plastic surgery. Review of Systems Review of Systems: All systems reviewed & are unremarkable except as noted in HPI and below ( HPI and those items noted below) Constitutional: Constitutional: Denies body ache(s), Denies chills, Denies daytime sleepiness, Denies fatigue, Denies fever(s) and Denies headache(s) Integumentary/Breasts: Skin/Breast: Denies rash, Denies skin ulcer and Reports wounds ( lower abdominal midline. See HPI.) Hematologic/Lymphatic: Hematologic/Lymphatic: Denies easy bleeding and Denies easy bruising Exam Skin: Wounds: wounds noted ( Lower abdominal midline wound is 100% pink and granulating. ) Other: while abdominal wound is pink and healthy, it has a triangular shape with bhatt to the wound on the 2 upper sides but the wound is flush to the skin on the most distal side. It should epithelialize in time but the configuration of the wound may make for prolonged difficulties healing. Size continues to get smaller and currently measures 3.3 x 3.5 x 1.2 cm. There has not been any tracking of the wound for a month.
--- NOTE | 2020-05-01 14:38 | WPDCN ---
Assessment and Plan Assessment and plan (1) Open abdominal wall wound: Qualifiers: Encounter type: subsequent encounter Qualified Code(s): S31.109D - Unspecified open wound of abdominal wall, unspecified quadrant without penetration into peritoneal cavity, subsequent encounter Code(s): S31.109A - Unspecified open wound of abdominal wall, unspecified quadrant without penetration into peritoneal cavity, initial encounter Status: Chronic Assessment and Plan: Today we had a lengthy discussion about her options and she is interested in proceeding with excisional debridement of lower abdominal wound. I estimate the sharp excisional debridement of skin and subcutaneous tissue excision at 4 x 4 x 2 cm. We will submit for insurance approval and proceed. Today including old record evaluation, patient care and charting this was a 50 minutes of physician time. Today we had a lengthy discussion about her options. Went over the risks, benefits, alternatives of each. This may heal however given the configuration of the skin tissue this would leak a significant deformity in this location. Further she has noted the healing has slow down over the last month and there was concerns that this would be become stagnant. I think it is reasonable to proceed with excisional debridement. I made sure she was well informed of her options and answered all of her questions prior to scheduling. She would like proceed as above. She understands this could lead to more open wounds and further complications. Further there is always risk of intestinal and other deep structure injury. We will schedule. 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 HPI Data of Consult Date/Time: 05/01/20 12:30 Requesting Physician: Jose Rodriguez MD Primary Care Provider: PHYSICIAN NOT ON STAFF Consult Narrative Narrative: Katerina Lee is a 64 year old female who has an open wound of her lower abdomen. Patient presented to Dr. Rodriguez with an abdominal bulge. Subsequently proceed to the operating room on 09/16/2019 for incisional hernia with mesh, bilateral transverses abdominis myofascial flap advancement. Postoperatively she developed an abscess and this was drained on 10/16/2019. Patient has been following wound care and with slight making progress. She return to the operating room on 02/10/2020 for excision of a chronic wound seroma. The wound has been healing however slower than anticipated now. Further there has been widening and separation of the central portion. The patient would like to see what her options are. There has been no concerns over an enterocutaneous fistula. She has had no significant drainage from this. No evidence of stool. Review of Systems Review of Systems: All systems reviewed & are unremarkable except as noted in HPI and below FOR[facility]LY [facility] Past Medical History Medical History (Updated 03/19/20 @ 00:00 by Fabrizio Mcghee) Carpal tunnel syndrome Diabetes Hyperlipidemia Neuropathy Surgical History Surgical History History of hysterectomy total History of placement of ear tubes History of tonsillectomy Family History Family History Father Heart disease Mother Diabetes mellitus Heart disease Grandparent Heart disease Cerebrovascular accident Sibling Diabetes mellitus Heart disease Sibling Diabetes mellitus Heart disease Sibling Diabetes mellitus Heart disease Other Hypertension
--- NOTE | 2020-05-08 11:24 | PCWOUND ---
WOCN NOTE cancelled appointment for today per Dr. Rodriguez request due to weather. rescheduled.
== END 2020-05-11 23:59 | disposition home or self-care (01) ==
LOC: ANHWOC 08:05
PROVIDERS: Visit Provider Surgery
DX: Z48.817 Encounter for surgical aftercare following surgery on the skin and subcutaneous tissue (principal); T81.31XD Disruption of external operation (surgical) wound, not elsewhere classified, subsequent encounter
CPT/HCPCS: 97605; 97606; 99212; A9270; G0463; J3370

== ENCOUNTER → 2020-05-08 06:51 | Outpatient (CLI) | payer OTHER, SELFPAY ==
[2020-05-08 19:35] LABS: SARS-CoV-2 RNA PCR Negative
== END ==
DX: Z01.812 Encounter for preprocedural laboratory examination (principal); Z20.822 Contact with and (suspected) exposure to COVID-19
CPT/HCPCS: C9803; U0003; U0005

== ENCOUNTER 2020-06-14 07:28 | Outpatient (RCR) | payer OTHER, SELFPAY | END 2020-07-31 09:21 | disposition home or self-care (01) | LOC: ANHWOC 07:28 | PROVIDERS: Visit Provider Surgery Plastic and Reconstructive Surgery | DX: Z48.817 Encounter for surgical aftercare following surgery on the skin and subcutaneous tissue (principal); T81.31XD Disruption of external operation (surgical) wound, not elsewhere classified, subsequent encounter | CPT/HCPCS: 99212; G0463 ==

== ENCOUNTER → 2020-06-20 00:18 | Outpatient (CLI) | payer OTHER, SELFPAY ==
[2020-06-20 18:31] LABS: SARS-CoV-2 RNA PCR Negative
== END ==
PROVIDERS: Visit Provider Surgery Plastic and Reconstructive Surgery
DX: Z01.812 Encounter for preprocedural laboratory examination (principal); Z20.822 Contact with and (suspected) exposure to COVID-19
CPT/HCPCS: 36415; 80048; 93005; C9803; U0003; U0005

== ENCOUNTER 2020-06-20 09:02 | Outpatient (CLI) | payer OTHER, SELFPAY ==
--- NOTE | 2020-06-20 09:06 | ECG_ITS ---
Measurements Intervals [place] Rate: 81 P: 30 UT: 124 QRS: 27 QRSD: 102 T: 26 QT: 378 QTc: 440 Interpretive Statements SINUS RHYTHM DELAYED PRECORDIAL R/S TRANSITION MINIMAL Q WAVES- INFERIOR LEADS BASELINE WANDER Electronically Signed On 06-20-2020 9:27:56 CDT by Daniel Sharpe D.O.
[2020-06-20 09:35] LABS: Anion Gap 5 mmol/L (8-16); Blood Urea Nitrogen 9 mg/dL (7-17); Calcium 9.8 mg/dL (8.4-10.2); Carbon Dioxide 35 mmol/L (22-30); Chloride 98 mmol/L (98-107); Estimated Glomerular Filt Rate > 60; Glucose 242 mg/dL (65-105); Potassium 4.6 mmol/L (3.4-5.0); Sodium 138 mmol/L (137-145)
== END 2020-06-20 09:03 | disposition home or self-care (01) ==
LOC: ANHSURGERY 09:05
PROVIDERS: Anesthesiology; Visit Provider Surgery Plastic and Reconstructive Surgery
DX: Z01.818 Encounter for other preprocedural examination (principal); E11.9 Type 2 diabetes mellitus without complications
CPT/HCPCS: 36415; 80048; 93005

== ENCOUNTER 2020-06-23 04:36 | Day surgery (SDC) | payer OTHER, SELFPAY ==
[2020-06-12 14:19] VITALS: BMI 27.6
[2020-06-23] VITALS (9 sets, daily range): BP systolic 133–171; BP diastolic 72–89; PULSE 72–82; RESP 12–18; TEMP 36.7–37.2; O2SAT 96–100
--- NOTE | 2020-06-23 07:47 | PM.IMHP ---
H&P: HPI History of Present Illness Date/Time: 06/23/20 12:00 She is here today because of an open wound on her lower abdomen. She initially presented to Dr. Rodriguez with an abdominal bulge. Subsequently proceed to the operating room on 09/16/2019 for incisional hernia with mesh, bilateral transverses abdominis myofascial flap advancement. Postoperatively she developed an abscess and this was drained on 10/16/2019. She return to the operating room on 02/10/2020 for excision of a chronic wound seroma. The wound has been healing however slower than anticipated now. Further there has been widening and separation of the central portion. There has been no concerns over an enterocutaneous fistula. She has had no significant drainage from this. No evidence of stool. She would like proceed with excisional debridement closure. Chief Complaint: Abdominal wound Review of Systems Review of Systems: All systems reviewed & are unremarkable except as noted in HPI and below PMFSH Past Medical History Medical History (Updated 03/19/20 @ 00:00 by Fabrizio Mcghee) Carpal tunnel syndrome Diabetes Hyperlipidemia Neuropathy Surgical History Surgical History History of hysterectomy total History of placement of ear tubes History of tonsillectomy Family History Family History Father Heart disease Mother Diabetes mellitus Heart disease Grandparent Heart disease Cerebrovascular accident Sibling Diabetes mellitus Heart disease Sibling Diabetes mellitus Heart disease Sibling Diabetes mellitus Heart disease Other Hypertension Social History Social History Smoking packs per day: 0.5 Smoking cigarettes per day: 10.0 Years smoked: 3 Smoking pack-years: 1.50 Smoking status: Former smoker Tobacco type: cigarettes Smoking end date: 03/24/75 Alcohol intake: current Drinks per week: 2 Substance use: current Substance use type: marijuana Other substance usage details: daily Last use: 09/15/2019 Living arrangements: with family Additional occupation/education comments: Cook Gender identity (if verbalized by the patient): Female Spiritual care concerns: No Meds Home Medications and Allergies Home Medications Medication Instructions Recorded Confirmed Type alendronate 70 mg tablet 70 mg PO WEEKLY 07/06/19 06/23/20 History atorvastatin 20 mg tablet 20 mg PO HS 07/06/19 06/23/20 History cholecalciferol (vitamin D3) 50 50 mcg PO DAILY 07/06/19 06/23/20 History mcg (2,000 unit) capsule Complete Women 1 tablet PO DAILY 09/09/19 06/23/20 History chromium picolinate 1,000 mcg PO DAILY 09/09/19 06/23/20 History duloxetine [Cymbalta] 30 mg PO DAILY 03/18/20 06/23/20 History prednisone 40 mg PO DAILY 5 Days #10 tablet 03/18/20 06/23/20 Rx empagliflozin [Jardiance] 25 mg PO DAILY 06/12/20 06/23/20 History liraglutide [Victoza 2-Neymar] 18 mg SUBCUT DAILY 06/12/20 06/23/20 History Allergies Allergy/AdvReac Type Severity Reaction Status Date / Time banana Allergy Severe Swelling Verified 06/23/20 10:46 of Lip/Tongue/Throat/itching kiwi Allergy Severe Swelling Verified 06/23/20 10:46 of Lip/Tongue/Throat/itching Exam Narrative: Exam Narrative: Lower abdomen as an open wound with great granulation. She has significant widening of the wound was separation lower abdominal skin tissue. Assessment and Plan Assessment and plan (1) Open abdominal wall wound: Qualifiers: Encounter type: subsequent encounter Qualified Code(s): S31.109D - Unspecified open wound of abdominal wall, unspecified quadrant without penetration into peritoneal cavity, subsequent encounter Code(s): S31.109A - Unspecified open wound of abdominal wall, unspecified quadrant without penetration into peritoneal cavity,
[2020-06-23] MEDS: LACTATED RINGERS 1,000 ML 30 ML IV CONT (10:57)
[2020-06-23 11:02] LABS: Glucose Point of Care 234 (65-105)
--- NOTE | 2020-06-23 11:30 | SUR.PREOP ---
dr garcia aware of accucheck results 234.
--- NOTE | 2020-06-23 11:50 | WPDHPUPDATE1 ---
History and Physical Update Update Date/Time: 06/23/20 11:50 History and Physical has been reviewed, including an updated exam of the patient. There are NO changes in the patient's condition. Risks, benefits, and alternatives have been discussed and questions answered. Patient agrees to proceed with procedure.
--- NOTE | 2020-06-23 11:52 | WPDANESEPPF ---
Anes - Initial Pre Proc Eval Procedure: Operation Date: 06/23/20 12:00 Proposed Procedures p Debridement Abdominal Wound - Ashkan Stewart MD Date/Time: 06/23/20 11:52 Surgeon: Ashkan Stewart MD Pre Op Diagnosis: abdominal wound Patient Data Age: 64 Gender: F Height: 4 ft 10 in Weight: 58.9 kg Last Vital Signs Temp 37.2 C 06/23/20 10:25 Pulse 72 06/23/20 10:25 Resp 16 06/23/20 10:25 BP 146/79 H 06/23/20 10:25 Pulse Ox 100 06/23/20 10:25 Allergies Allergy/AdvReac Type Severity Reaction Status Date / Time banana Allergy Severe Swelling Verified 06/23/20 10:46 of Lip/Tongue/Throat/itching kiwi Allergy Severe Swelling Verified 06/23/20 10:46 of Lip/Tongue/Throat/itching Home Medications Medication Instructions Recorded Confirmed Type alendronate 70 mg tablet 70 mg PO WEEKLY 07/06/19 06/23/20 History atorvastatin 20 mg tablet 20 mg PO HS 07/06/19 06/23/20 History cholecalciferol (vitamin D3) 50 50 mcg PO DAILY 07/06/19 06/23/20 History mcg (2,000 unit) capsule Complete Women 1 tablet PO DAILY 09/09/19 06/23/20 History chromium picolinate 1,000 mcg PO DAILY 09/09/19 06/23/20 History duloxetine [Cymbalta] 30 mg PO DAILY 03/18/20 06/23/20 History prednisone 40 mg PO DAILY 5 Days #10 tablet 03/18/20 06/23/20 Rx empagliflozin [Jardiance] 25 mg PO DAILY 06/12/20 06/23/20 History liraglutide [Victoza 2-Neymar] 18 mg SUBCUT DAILY 06/12/20 06/23/20 History Laboratory Tests 06/23/20 10:59 POC Capillary Glucose 234 mg/dl H mg/dl (65-105) Patient hx anesthesia problems: post op nausea/vomiting Family hx anesthesia problems: none PMFSH Past Medical History Medical History Carpal tunnel syndrome Diabetes Hyperlipidemia Neuropathy Surgical History Surgical History History of hysterectomy total History of placement of ear tubes History of tonsillectomy Family History Family History Father Heart disease Mother Diabetes mellitus Heart disease Grandparent Heart disease Cerebrovascular accident Sibling Diabetes mellitus Heart disease Sibling Diabetes mellitus Heart disease Sibling Diabetes mellitus Heart disease Other Hypertension Social History Social History Smoking packs per day: 0.5 Smoking cigarettes per day: 10.0 Years smoked: 3 Smoking pack-years: 1.50 Smoking status: Former smoker Tobacco type: cigarettes Smoking end date: 03/24/75 Alcohol intake: current Drinks per week: 2 Substance use: current Substance use type: marijuana Other substance usage details: daily Last use: 09/15/2019 Living arrangements: with family Additional occupation/education comments: Cook Gender identity (if verbalized by the patient): Female Spiritual care concerns: No Anes - Eval Final PreProcedure Day of Procedure 06/23/20 11:52 Patient weight: overweight Heart: regular rate and rhythm Lungs: decreased breath sounds Airway: Mallampati scale class II Neurological: alert and oriented Last oral intake: >/= 8 hours ASA classification: III Emergent: no Anesthetic plan: proceed Anesthesia type and monitoring: general LMA and standard monitoring Informed Consent: The patient's anesthetic plan and its attendant risks and benefits were discussed with the patient/family/POA. Questions were solicited and answers provided to the satisfaction of the patient/family/POA.
[2020-06-23] MEDS: SCOPOLAMINE 1.5 MG PATCH TRANSDERM (12:02)
[2020-06-23] MEDS: LIDO 1%/EPINEPHRINE/PF 1:200,000 30 ML VIAL 15 ML XX (12:02)
[2020-06-23] MEDS: ceFAZolin 2 GM/D5W 50 ML 2 GM/50 ML BAG IVPB (12:02)
[2020-06-23] MEDS: BUPIVACAINE HCL 0.25% PF 30 ML VIAL INFILTRATE (12:02)
--- NOTE | 2020-06-23 13:13 | PM.PROC ---
Procedure Note - Detailed Date of procedure: 06/23/20 Pre-op diagnosis: abdominal wound Post-op diagnosis: same Procedure performed: 1. Sharp surgical excision abdominal wound including skin, subcutaneous tissue. 10 x 30 cm (300cm2) 2. Adjacent tissue transfer abdomen 10 x 30 cm (300cm2) Description of procedure: Patient was marked in the preoperative holding area with her verification. Risks, benefits, alternatives were discussed. All questions answered to her satisfaction. Consent obtained. She was taken to the operating room placed supine on the operating room table. Anesthesia provided by anesthesiology and prepped and draped in a standard sterile fashion. Surgical time-out was taken. 1% lidocaine and 0.25% Marcaine with epinephrine was used anesthetize locally. A 10 blade was used to make an incision along the wound edges. Dissection was continued down completely excising this tissue. This was sent to pathology. I was able to completely excise the wound. There did not appear to be any communication with deeper structures. I did not violate the fascia. I copiously irrigated with bacitracin containing saline on TUR tubing. Verified strict hemostasis. I then closed in many layers to obliterate all space using Bovie electrocautery. I did elevate tissue flaps just above the fascia in order to provide closure tension free. This was closed using 2-0 Vicryl followed by 3-0 strata fix in a running subcuticular 4-0 Monocryl followed by tissue glue. Dressings were placed. She tolerated the procedure well. Was awoken taken the PACU without difficulty. All instrument sponge counts were correct at the end of the case. Anesthesia: GLMA Surgeon: Ashkan Stewart MD Estimated blood loss (mL): 10 Drains: No Packing: No Pathology: yes (Abdominal tissue) Complications: No immediate complications Condition: stable Disposition: PACU Findings: Wound completely excised. No evidence of deep structure / fascia involvement.
[2020-06-23 14:17] LABS: Glucose Point of Care 227 (65-105)
--- NOTE | 2020-06-23 14:40 | SUR.PHASEII ---
1430-- pt sister updated by phone .
== END 2020-06-23 15:50 | disposition home or self-care (01) ==
PROVIDERS: Visit Provider Surgery Plastic and Reconstructive Surgery
PROC: (CPT 14301; principal; 2020-06-23 12:00)
DX: T81.31XA Disruption of external operation (surgical) wound, not elsewhere classified, initial encounter (principal); L98.499 Non-pressure chronic ulcer of skin of other sites with unspecified severity; Y83.8 Other surgical procedures as the cause of abnormal reaction of the patient, or of later complication, without mention of misadventure at the time of the procedure; G56.00 Carpal tunnel syndrome, unspecified upper limb; E78.5 Hyperlipidemia, unspecified; E11.40 Type 2 diabetes mellitus with diabetic neuropathy, unspecified; Z87.891 Personal history of nicotine dependence; F12.90 Cannabis use, unspecified, uncomplicated; Z79.84 Long term (current) use of oral hypoglycemic drugs
CPT/HCPCS: 14301; 14302 ×8; 88304; A9270; J0690; J1100; J2405; J2704; J3010; J7120

== ENCOUNTER 2021-12-20 16:43 | Emergency (ER) | payer OTHER, MEDICARE, MEDICAID, SELFPAY ==
--- NOTE | ~2021-12-20 | XR_ITS ---
EXAMINATION: XR wrist RT min 3V INDICATION: Right wrist pain TECHNIQUE: Four views of the right wrist are obtained. COMPARISON: None available FINDINGS: Bone alignment is normal. There is no fracture. 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 Calcified atherosclerosis is noted. IMPRESSION: 1. No acute osseous abnormality. Reviewed, dictated and finalized at location A.
--- NOTE | ~2021-12-20 | XR_ITS ---
EXAMINATION: XR shoulder RT min 2V INDICATION: Right shoulder pain TECHNIQUE: Four views of the right shoulder are submitted. COMPARISON: None FINDINGS: Normal alignment. No fracture. There is mild osteoarthritis of the acromioclavicular and gl enohumeral joints. Soft tissues are unremarkable. IMPRESSION: 1. No acute osseous abnormality. Reviewed, dictated and finalized at location A.
--- NOTE | ~2021-12-20 | XR_ITS ---
EXAMINATION: XR lumbar spine 2-3V DATE: 12/20/2021 17:27 INDICATION: Low back pain TECHNIQUE: Anteroposterior and lateral views of the lumbar spine, and cone-down lateral view of the l umbosacral junction were obtained. COMPARISON: None. FINDINGS: Bone alignment is normal. There is no fracture. The vertebral body heights are normal. Ther e is mild loss of intervertebral disc space height at L4-5. Calcified atherosclerosis is noted. There is moderate facet osteoarthritis of the lower lumbar spine. Phleboliths are noted in the pelvis. IMPRESSION: 1. Mild lumbar spondylosis without acute findings. Reviewed, dictated and finalized at location A.
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
[2021-12-20 16:58] VITALS: BP 131/76; PULSE 82; RESP 16; TEMP 36.6; O2SAT 100
== END 2021-12-20 18:00 | disposition home or self-care (01) ==
PROVIDERS: Emergency Provider Nurse Practitioner
DX: S39.012A Strain of muscle, fascia and tendon of lower back, initial encounter (principal); V49.9XXA Car occupant (driver) (passenger) injured in unspecified traffic accident, initial encounter; M25.511 Pain in right shoulder; M25.531 Pain in right wrist; M47.816 Spondylosis without myelopathy or radiculopathy, lumbar region; Z87.891 Personal history of nicotine dependence; E78.5 Hyperlipidemia, unspecified; E11.40 Type 2 diabetes mellitus with diabetic neuropathy, unspecified
CPT/HCPCS: 72100; 73030; 73110; 99214; G0463

== ENCOUNTER 2022-09-04 15:38 | Outpatient (CLI) | payer MEDICARE, MEDICAID, SELFPAY ==
--- NOTE | ~2022-09-04 | CT_ITS ---
EXAMINATION: CT chest abdomen pelvis w con DATE: 09/04/2022 22:13 INDICATION: Lung nodule, history of renal infarct TECHNIQUE: Transaxial computed tomographic images of the chest, abdomen, and pelvis were obtained aft er the administration of 100 cc of Omnipaque 350 intravenous contrast. The dose-length product (DLP) was 281.45 mGy-cm. Automated exposure control and iterative reconstruction technique were employed. COMPARISON: 10/16/2019 FINDINGS: CHEST CT: There is mild dependent atelectasis. There is a stable, chronic 3 mm nodule of the right lower lobe, consistent with old granulomatous disease. No pathologically enlarged thoracic lymph nodes are identi fied. The heart size is normal. There is calcified coronary artery atherosclerosis. There is mild tho racic spondylosis. ABDOMEN/PELVIS CT: The liver is diffusely low in attenuation when compared with the spleen, consistent with hepatic stea tosis. The spleen and adrenal glands are normal. The pancreatic duct upper limits of normal in calibe r which could reflect prior pancreatitis. There are areas of cortical scarring in the kidneys. There is calcified atherosclerosis of the aorta and many of the other arteries. No pathologically enlarged abdominal or pelvic lymph nodes are identified. The appendix is normal. There is mild lumbar spondylo sis. IMPRESSION: 1. Stable right lower lobe nodule, consistent with old granulomatous disease. 2. Areas of cortical scarring in the kidneys, consistent with prior infarct. Reviewed, dictated and finalized at location A.
[2022-09-05 13:40] LABS: Estimated Glomerular Filt Rate 55
== END 2022-09-04 15:39 | disposition home or self-care (01) ==
LOC: ANHIMG 15:39
PROVIDERS: PCP Nurse Practitioner Family; Visit Provider Internal Medicine Hematology & Oncology
DX: R91.1 Solitary pulmonary nodule (principal); N28.89 Other specified disorders of kidney and ureter
CPT/HCPCS: 71260; 74177; Q9967

== ENCOUNTER 2022-09-17 11:05 | Outpatient (CLI) | payer MEDICARE, MEDICAID, SELFPAY ==
[2022-09-19 21:42] LABS: Antithrombin III Activity 129 % normal (80-135)
[2022-09-22 20:51] LABS: Lupus dRVVT Screen 32 sec (<=45); PTT-LA Screen 32 sec (<=40)
[2022-09-23 13:32] LABS: Factor V (Leiden) Mutation NEGATIVE
== END 2022-09-17 11:06 | disposition home or self-care (01) ==
LOC: ANHLAB 11:07
PROVIDERS: PCP Nurse Practitioner Family; Visit Provider Internal Medicine Hematology & Oncology
DX: N28.0 Ischemia and infarction of kidney (principal)
CPT/HCPCS: 36415; 81240; 81241; 85300; 85303; 85306; 85613; 85730